=== PATIENT | male | born 1935 | race Caucasian/White ===

== ENCOUNTER 2016-08-20 07:42 | Inpatient (IN) | payer MEDICARE, OTHER ==
[~2016-08-20] VITALS: Ht 175.3 cm; Wt 66.1 kg
[~2016-08-20 07:42] MED LIST: BUDE6HFA IH; CARV25TA79 PO; CELE200C PO; CHOLESTEROL PO; DIABETES PO; ESCI20TA PO; ESOM20CA PO; HEART PO; HTN PO; LOVAZA PO; MECL-90 PO; METF1000 PO; METO-429 PO; PLAVIX PO; RAMI10CA48 PO; SITA100T8 PO; SMV40T PO; ZOLP5TAB6 PO
[2016-08-20 07:48] VITALS: Ht 175.3 cm; Wt 66.1 kg
[2016-08-20] MEDS ORDERED: SOD CHLORIDE 0.9% 1,000 ML IV STA (08:13)
[2016-08-20 08:46] LABS: ALBUMIN 3.7 g/dl (3.3-4.9)
[2016-08-20 08:47] LABS: INR 1.12; POTASSIUM 4.4 mmol/L (3.5-5.1); PROTIME 14.4 Sec (12.2-14.2); PT RATIO 1.1
[2016-08-20 08:48] LABS: PARTIAL THROMBOPLASTIN TIME 31.3 Sec (25.0-35.0)
[2016-08-20 08:49] LABS: ALBUMIN/GLOBULIN RATIO 1.12; BILIRUBIN,INDIRECT 0.2 mg/dl (0-1.1); BILIRUBIN,TOTAL 0.2 mg/dl (0.2-1.3); CREATININE 1.68 mg/dl (0.61-1.24)
[2016-08-20 08:50] LABS: CALCIUM 9.2 mg/dl (8.4-10.2)
[2016-08-20 08:57] LABS: BASOPHILS % 0.4 % (0.0-2.0); EOSINOPHILS # 0.1 10^3/ul (0.0-0.5); EOSINOPHILS % 0.5 % (0.0-7.0); HEMATOCRIT 31.7 % (42.0-52.0); HEMOGLOBIN 10.8 g/dl (14.0-18.0); LYMPHOCYTES # 1.3 10^3/ul (0.8-2.9); LYMPHOCYTES % 13.2 % (15.0-51.0); MEAN CORPUSCULAR HEMOGLOBIN 30.4 pg (29.0-33.0); MEAN CORPUSCULAR HGB CONC 34.2 g/dl (32.0-37.0); MEAN CORPUSCULAR VOLUME 88.8 fl (82.0-101.0); MONOCYTE # 1.3 10^3/ul (0.3-0.9); NEUTROPHIL # 7.3 10^3/ul (1.6-7.5); NEUTROPHILS % 72.9 % (39.0-77.0); PLATELET COUNT 198 10^3/UL (140-440); RED BLOOD COUNT 3.57 10^6/ul (4.70-6.10)
[2016-08-20 09:02] LABS: TROPONIN-I 0.017 ng/ml (0.00-0.12)
[2016-08-20 09:06] LABS: CONDITION 1
[2016-08-20] MEDS ORDERED: MECL-77 PO (09:13)
[2016-08-20] MEDS ORDERED: MEGE20TA6 PO (09:14)
[2016-08-20] MEDS ORDERED: IBUP800T25 PO (09:14)
[2016-08-20] MEDS ORDERED: MEMA10TA16 PO (09:15)
[2016-08-20] MEDS ORDERED: GABA300C16 PO (09:15)
[2016-08-20] MEDS ORDERED: ADV25050 INHALATION (09:16)
[2016-08-20] MEDS ORDERED: DUTA0.5C PO (09:16)
[2016-08-20] MEDS ORDERED: EZET10TA3 PO (09:16)
[2016-08-20] MEDS ORDERED: CYCL1DRO BOTH EYES (09:17)
[2016-08-20] MEDS ORDERED: SOLI5TAB5 PO (09:18)
[2016-08-20] MEDS ORDERED: ARIP2TAB8 PO (09:18)
--- NOTE | 2016-08-20 09:18 | ERA ---
ER Documentation Chief Complaint Date/Time DATE: 08/20/16 TIME: 09:16 Chief Complaint left sided abdominal pain, cough, fever x 1 month, vomiting x 1 week HPI 80-year-old male who presents with family. His grandson appears to be interpreting. The patient has myriad complaints that include left-sided abdominal pain for approximately 1 month with intermittent cough and intermittent fevers and chills. Approximately 1 week the patient has had several episodes of nonbloody nonbilious emesis. The patient does report prior abdominal surgical history but is unsure what this was. He is a smoker. He denies any significant shortness of breath but has describes shortness of breath in the past with pleuritic pain over this timeframe. No lower extremity swelling. ROS All systems reviewed and are negative except as per history of present illness. Medications Home Meds Reported Medications Salmeterol Xinaf/Fluticasone* (Advair*) 250-50 Diskus Inhaler, 1 INH INHALATION BID, #1 INHALER 08/20/16 Memantine* (Namenda*) 10 Mg Tablet, 10 MG PO BID, #60 TAB 08/20/16 Gabapentin* (Gabapentin*) 300 Mg Capsule, 300 MG PO BID, #60 CAP 08/20/16 Megestrol Acetate* (Megestrol Acetate*) 20 Mg Tablet, 20 MG PO DAILY, TAB 08/20/16 Ibuprofen* (Motrin*) 800 Mg Tab, 800 MG PO DAILY Y for PAIN, TAB 08/20/16 Meclizine Hcl* (Meclizine Hcl*) 25 Mg Tablet, 25 MG PO BID Y for DIZZINESS, TAB 08/20/16 Zolpidem Tartrate* (Zolpidem Tartrate*) 5 Mg Tablet, 5 MG PO HS 04/12/13 Metformin Hcl* (Metformin Hcl*) 1,000 Mg Tablet, 1000 MG PO BID 04/12/13 Carvedilol* (Carvedilol*) 25 Mg Tablet, 25 MG PO BID 04/12/13 Sitagliptin* (Januvia*) 100 Mg Tablet, 100 MG PO DAILY 04/12/13 Simvastatin (Simvastatin) 40 Mg Tablet, 40 MG PO DAILY 04/12/13 Ramipril (Ramipril) 10 Mg Capsule, 10 MG PO DAILY 04/12/13 Discontinued Reported Medications Budesonide-Formoterol Fumarate* (Symbicort*) 6 Gm Hfa.aer.ad, 6 GM IH BID 04/12/13 Metoprolol Tartrate (LOPRESSOR) 50 Mg Tab, 50 MG PO DAILY 04/12/13 Meclizine Hcl* (Bonine*) 25 Mg Tab.chew, 25 MG PO BID 04/12/13 [Lovaza] No Conflict Check, 1 GM PO BID 04/12/13 Escitalopram Oxalate* (Lexapro*) 20 Mg Tablet, 20 MG PO DAILY 04/12/13 Celecoxib* (Celebrex*) 200 Mg Capsule, 200 MG PO DAILY 04/12/13 Esomeprazole Mag Trihydrate (Nexium) 20 Mg Capsule.dr, 40 MG PO DAILY 04/12/13 [Cholesterol] No Conflict Check, PO DAILY 04/17/12 [Plavix] No Conflict Check, PO DAILY 04/17/12 [Heart] No Conflict Check, PO DAILY 04/17/12 [Diabetes] No Conflict Check, PO BID 04/17/12 [Htn ] No Conflict Check, PO DAILY 04/17/12 Allergies Allergies: Coded Allergies: No Known Allergy (Unverified , 04/12/13) PMhx/Soc History of Surgery: Yes (APPENDECTOMY) Anesthesia Reaction: No Hx Neurological Disorder: No Hx Respiratory Disorders: No Hx Cardiac Disorders: Yes (HTN 6 YRS ) Hx Psychiatric Problems: No Hx Miscellaneous Medical Probl: Yes (DM,COPD,OSTEOARTHERITIS,DEPRESSION) Hx Alcohol Use: No Hx Substance Use: No Hx Tobacco Use: Yes Smoking Status: Current every day smoker FmHx Family History: No diabetes Physical Exam Vitals Vital Signs Date Time Temp Pulse Resp B/P Pulse Ox O2 Delivery O2 Flow Rate FiO2 08/20/16 07:48 97.9 82 18 130/66 95 Physical Exam General: Well developed, well nourished, no acute distress Head: Normocephalic, atraumatic. Eyes: Pupils equally reactive, EOM intact ENT: Moist mucous membranes Neck: Supple, no lymphadenopathy Respiratory: Scant rales at the bases bilaterally, no distress Cardiovascular: RRR, no murmurs, rubs, or gallops Abdominal: Soft, mild diffuse tenderness without rebound or guarding, no pulsatile mass : Deferred MSK: No edema, no unilateral swelling, 5/5 strength Neurologic: Alert and oriented, moving all extremities, normal speech, no focal weakness, no cerebellar signs Skin: No rash Psych: Normal mood Result Diagram: 08/20/16 0815 Results 24 hrs Laboratory Tests Test 08/20/16 08:12 08/20/16 08:15 Bedside Glucose 157mg/dL Activated Partial Thromboplast Time 31.3Sec Basophils # 0.010^3/ul Basophils % 0.4% Eosinophils # 0.110^3/ul Eosinophils % 0.5% Hematocrit 31.7% Hemoglobin 10.8g/dl INR International Normalized Ratio 1.12 Lymphocytes # 1.310^3/ul Lymphocytes % 13.2% Mean Corpuscular Hemoglobin 30.4pg Mean Corpuscular Hemoglobin Concent 34.2g/dl Mean Corpuscular Volume 88.8fl Mean Platelet Volume 9.0fl Monocytes # 1.310^3/ul Monocytes % 13.0% Neutrophils # 7.310^3/ul Neutrophils % 72.9% Nucleated Red Blood Cells # 0.010^3/ul Nucleated Red Blood Cells % 0.0/100WBC Platelet Count 88832^3/UL Prothrombin Time 14.4Sec Prothrombin Time Ratio 1.1 Red Blood Count 3.5710^6/ul Red Cell Distribution Width 13.0% White Blood Count 10.010^3/ul Current Medications Medications (Trade) Dose Ordered Sig/Sury Route PRN Reason Start Time Stop Time Status Last Admin Dose Admin Sodium Chloride (NS) 1,000 ml @ 1,000 mls/hr Q1H STAT IV 08/20/16 08:13 08/20/16 09:12 DC 08/20/16 08:29 Procedures/MDM EKG, MONITORS, & DIAGNOSTIC IMAGING: EKG: I reviewed and interpreted a 12-lead EKG. Rhythm: Normal sinus rhythm Ectopy: None Intervals: No abnormalities ST segments: No elevations or depressions T waves: No contiguous inversions Chest x-ray: I reviewed and interpreted a 1 view of the chest Mediastinum: No enlargement Cardiac silhouette: No cardiomegaly Airspace: Clear lung pena bilaterally without evidence of pneumothorax Bones: No evidence of fracture CT PE: [] CT abdomen and pelvis: [] PROCEDURES: [] LAB INTERPRETATION: [] MEDICAL DECISION MAKING: The patient has multiple complaints over approximately 1 month timeframe. This includes abdominal pain with intermittent chills, fevers as well as left-sided shortness of breath and pleuritic pain. I doubt ACS or dissection given duration of timeframe. However given the patient's age and smoking history malignancy pops to the top of my differential. I would consider pulmonary embolism in the setting as well. For these reasons the patient will benefit from advanced imaging including CT of the chest and abdomen and pelvis, laboratory testing and rule out of ACS. It appears the patient had polyps removed during colonoscopy approximately 5 years ago. ER COURSE: [] I kept the patient and/or family informed of laboratory and diagnostic imaging results throughout the emergency room course. DISPOSITION PLAN: [] CONSULTATION: [] CINDY DEL TORO MD Aug 20, 2016 09:18
[2016-08-20] MEDS ORDERED: OLOP2.5D BOTH EYES (09:19)
[2016-08-20] MEDS ORDERED: DEXL60CA2 PO (09:19)
[2016-08-20] MEDS ORDERED: RANO500T2 PO (09:19)
[2016-08-20] MEDS ORDERED: LIPA1CAP6 PO (09:20)
[2016-08-20] MEDS ORDERED: ICOS1CAP PO (09:21)
--- NOTE | 2016-08-20 09:35 | RADRPT ---
PROCEDURE: XR Chest. CLINICAL INDICATION: Cough TECHNIQUE: Chest AP portable COMPARISON: 04/12/2013 FINDINGS: The mediastinal structures are unremarkable. There is calcification of the thoracic aorta (consiste nt with atherosclerosis). The heart is normal in size and configuration. The pulmonary vascularity is normal. The lung pena are unremarkable. No consolidation is identified. There is no change in the tiny LLL calcified granuloma. The pleural spaces are unremarkable. There are senescent malloy ges of the axial skeleton. IMPRESSION: Calcification of the thoracic aorta (consistent with atherosclerosis). No evidence for active cardiopulmonary disease. RPTAT: HGDB .Jayson Cole MD, MD Date Time Electronically viewed and signed by .Jayson Cole MD, on 08/20/2016 09:34 .B/
[2016-08-20 10:47] LABS: D-DIMER 765.9 ng/ml (<460)
[2016-08-20 14:34] LABS: ADD UMIC YES; URINE BILIRUBIN (Dip) NEGATIVE (NEGATIVE); URINE BLOOD (Dip) 3+ (NEGATIVE); URINE COLOR LT. YELLOW (YELLOW); URINE GLUCOSE (Dip) NEGATIVE (NEGATIVE); URINE KETONES (Dip) NEGATIVE (NEGATIVE); URINE LEUKOCYTE ESTERASE (Dip) NEGATIVE (NEGATIVE); URINE NITRITE (Dip) NEGATIVE (NEGATIVE); URINE TOTAL PROTEIN (Dip) TRACE (NEGATIVE); URINE UROBILINOGEN (Dip) 0.2 E.U./dL (0.1-1.0)
[2016-08-20 14:45] LABS: SQUAMOUS EPITHELIAL CELL,UR FEW
--- NOTE | 2016-08-20 16:31 | RADRPT ---
PROCEDURE: Nuclear medicine ventilation perfusion lung scan. CLINICAL INDICATION: Chest pain and shortness of breath. TECHNIQUE: 46 mCi technetium 99m DTPA was used for the ventilation study. 4.7 millicurie technetium 99m MAA was injected intravenously for the perfusion study. The images were obtained in the LPO, RPO, anterior, posterior, right lateral, left lateral, MICHAELLE, and MCMAHAN projections. COMPARISON: No prior studies available for comparison. FINDINGS: The ventilation study demonstrates moderate central deposition of radiotracer. The perfusion study demonstrates patchy bilateral regions of impaction decreased uptake in the left upper lung zone, left lower lung zone, right middle lung zone, and right lower lung zone laterally. IMPRESSION: 1. Multiple matched defects bilaterally. Indeterminate probability for pulmonary embolism. Correl ation with CT pulmonary angiogram is advised. RPTAT: QQ .Javed Cortes MD, Date Time Electronically viewed and signed by .Javed Cortes MD, on 08/20/2016 16:31 .R/
[2016-08-21] VITALS (15 sets, daily range): BP systolic 107–143; BP diastolic 56–103; PULSE 62–86; RESP 16–30; TEMP 98.4
[2016-08-21] MEDS ORDERED: DOCUSATE SODIUM 100 MG CAP PO PRN
[2016-08-21] MEDS ORDERED: NITROGLYCERIN (SL) 0.4 MG TAB SL PRN
[2016-08-21] MEDS ORDERED: ACETAMINOPHEN 650MG/20.3ML CUP PO PRN
[2016-08-21] MEDS ORDERED: LORAZEPAM 2 MG INJ IV PRN
[2016-08-21] MEDS ORDERED: MECLIZINE 25 MG TAB PO PRN
[2016-08-21] MEDS ORDERED: morphine 2 MG INJ IV PRN
[2016-08-21] MEDS ORDERED: ONDANSETRON 4 MG INJ IV PRN
--- NOTE | 2016-08-21 00:52 | HP ---
Date/Time of Note Date/Time of Note DATE: 08/21/16 TIME: 00:41 Assessment/Plan VTE Prophylaxis VTE Prophylaxis Intervention: heparin Assessment/Plan Assessment/Plan 80 yo male with past medical history of type II DM, essential hypertension, BPH , Hyperlipidemia, Smoking abuse, GERD, CAD, Depression, Vertigo, who presents with chest pain 4 days duration. 1. Chest pain - PE vs dissection vs ACS - will admit the patient to the icu, consult cardiology, pulmonology, monitor O2 saturations, Morphine/Oxygen/NTG SL/ Aspirin, CTA chest once creatinine improves with possible CT surgery consult, cycle cardiac markers, check TSH/Mag levels 2. Acute renal insufficiency - ATN vs dehydration - c/w IVF, renally adjust medications, avoid nephrotoxins 3. Anemia - chronic - will check iron panel, occult blood stool 4. Type II DM - controlled check Hgba1c, ISS 5. Essential hypertension - c/w coreg, maintain sbp < 140 for concern of dissection 6. Hyperlipidemia - c/w zetia/statin - check lipid panel 7. CAD - continue with aspirin 8. Depression - continue with abilify 9. Dementia - c/w namenda 10. Vertigo - c/w antivert 11. GERD - c/w dexilant 12. Smoking abuse - patient counseled on cessation 13. GI ppx - dexilant 14. DVT ppx - heparin answered all of his questions. as per clinical course. this critical care note took greater than 1 hour to complete HPI/ROS Admit Date/Time Admit Date/Time 08/21/2016, 12:42 am Hx of Present Illness 80 yo male with past medical history of type II DM, essential hypertension, BPH , Hyperlipidemia, Smoking abuse, GERD, CAD, Depression, Vertigo, who presents with chest pain 4 days duration. The patient had recently gone gambling and had noted that the air conditioning was blasting on top of his head. Subsequently he developed a cough, with chills. He also has been having decreased appetite, nausea with 4 episodes of NBNB vomitus. He also states that he has chest pain, 10/10 -->6/10 in intensity, substernal, radiating to the back, with diaphoresis , pressure like sensation, constant, with mild shortness of breath. He denies any loss of consciousness, sick contacts, headaches, or urinary/bowel irregularities. He does have a non-productive cough. Otherwise no other constitutional symptoms. ED course: V/Q scan - indeterminate, IVF ROS 14 point review of systems completed, please refer to HPI for any positive findings PMH/Family/Social Past Medical History depression, BPH, vertigo Medical History: coronary artery disease, diabetes, GERD, high cholesterol, hypertension Past Surgical History Past Surgical Hx: angioplasty, appendectomy Family History Significant Family History: no pertinent family hx Social History Alcohol Use: occasionally Smoking Status: Current every day smoker (1 ppd x 70 years) Drug Use: none Exam/Review of Systems Vital Signs Vitals Vital Signs Date Time Temp Pulse Resp B/P Pulse Ox O2 Delivery O2 Flow Rate FiO2 08/21/16 00:22 73 20 117/73 96 Room Air 08/20/16 19:02 98.0 2.0 Exam Exam Gen Chaya: mild distress / to chest pain, AAOx4 HEENT: NC/AT, PERRLA, EOMI, no pharyngeal erythema, no tonsillar exudates, no lymphadenopathy, no JVD, no carotid bruits NECK: supple, no thyromegaly THORAX: symmetrical, no obvious deformities CV: S1S2, RRR, no M/G/R Lungs: diminished breath sounds to the bases bilaterally, no overt wheezing or crackles appreciated Abd: soft, NT/ND, +BS, no rebound, no guarding, neg HSM EXT: trace lower extremity edema, no ecchymosis, bilateral clubbing, FROM Neuro: CN II-XII grossly intact, no focal deficits Psych: good mentation, alert and oriented, good mood and affect Skin: C/D/I Labs Result Diagram: 08/20/1681408/20/1615 Medications Medications Current Medications Sodium Chloride (NS) 1,000 ml @ 75 mls/hr [id number] IV ; Start 08/20/16 at 23:34 ; Status UNV Ondansetron HCl (Zofran Inj) 4 mg Q6H PRN IV NAUSEA AND/OR VOMITING; Start at 00:00; Status UNV Nitroglycerin (Nitroglycerin (Sl Tab) 0.4 Mg) 1 tab Q5M PRN SL CHEST PAIN; Start 08/21/16 at 00:00; Status UNV Acetaminophen (Tylenol Liquid) 650 mg Q6H PRN PO PAIN LEVEL 1-3 OR FEVER; Start 08/21/16 at 00:00; Status UNV Morphine Sulfate (morphine) 2 mg Q4H PRN IV PAIN LEVEL 7-10; Start 08/21/16 at 00:00; Status UNV Lorazepam (Ativan) 1 mg Q2H PRN IV ANXIETY; Start 08/21/16 at 00:00; Status UNV Docusate Sodium (Colace) 100 mg Q12H PRN PO CONSTIPATION; Start 08/21/16 at 00: 00; Status UNV Famotidine (Pepcid Iv) 20 mg Q12 IV ; Start 08/21/16 at 09:00; Status UNV Heparin Sodium (Porcine) (Heparin (5000 Units/0.5 ml)) 5,000 unit Q8 SC ; Start 08/21/16 at 06:00; Status UNV Miscellaneous Information (* Miscellaneous Pharmacy Order) HYPOGLYCEMIA PROTOCOL w... ONCE ONCE XX ; Start 08/21/16 at 00:00; Stop 08/21/16 at 00:01; Status UNV Miscellaneous Information (* Miscellaneous Pharmacy Order) Discontinue Glyburide , Glipizide,... ONCE ONCE XX ; Start 08/21/16 at 00:00; Stop 08/21/16 at 00:01 ; Status UNV Miscellaneous Information (* Miscellaneous Pharmacy Order) Discontinue all previ... ONCE ONCE XX ; Start 08/21/16 at 00:00; Stop 08/21/16 at 00:01; Status UNV Procedures Procedures V/Q scan IMPRESSION: 1. Multiple matched defects bilaterally. Indeterminate probability for pulmonary embolism. Correlation with CT pulmonary angiogram is advised. CXR IMPRESSION: Calcification of the thoracic aorta (consistent with atherosclerosis). No evidence for active cardiopulmonary disease. KALAYN HUITRON MD Aug 21, 2016 00:52
[2016-08-21] MEDS ORDERED: GLUCOSE GEL 15 GRAM TUBE BUCCAL PRN (01:00)
[2016-08-21] MEDS ORDERED: GLUCAGON 1 MG INJ IM PRN (01:00)
[2016-08-21] MEDS ORDERED: GLUCOSE GEL 15 GRAM TUBE PO PRN ×2 (01:00)
[2016-08-21] MEDS ORDERED: DEXTROSE 50% 50 ML SYRINGE IV PRN ×2 (01:00)
[2016-08-21 02:16] LABS: BASOPHILS % 0.2 % (0.0-2.0); EOSINOPHILS # 0.1 10^3/ul (0.0-0.5); EOSINOPHILS % 0.7 % (0.0-7.0); HEMATOCRIT 34.3 % (42.0-52.0); HEMOGLOBIN 11.7 g/dl (14.0-18.0); LYMPHOCYTES # 1.5 10^3/ul (0.8-2.9); LYMPHOCYTES % 14.5 % (15.0-51.0); MEAN CORPUSCULAR HEMOGLOBIN 30.3 pg (29.0-33.0); MEAN CORPUSCULAR VOLUME 89.1 fl (82.0-101.0); MONOCYTE # 1.3 10^3/ul (0.3-0.9); MONOCYTES % 12.5 % (0.0-11.0); NEUTROPHIL # 7.4 10^3/ul (1.6-7.5); NEUTROPHILS % 72.1 % (39.0-77.0); PLATELET COUNT 241 10^3/UL (140-440); RED BLOOD COUNT 3.85 10^6/ul (4.70-6.10); RED CELL DISTRIBUTION WIDTH 12.8 % (11.5-14.5); UNCORRECTED WBC 10.3 10^3/ul (4.8-10.8); WHITE BLOOD COUNT 10.3 10^3/ul (4.8-10.8)
[2016-08-21 02:17] LABS: CHOL/HDL RATIO 5.7 RATIO; MAGNESIUM 1.6 mg/dl (1.7-2.5)
[2016-08-21 02:18] LABS: CONDITION 1
[2016-08-21 03:54] LABS: THYROID STIMULATING HORMONE 1.48 MIU/L (0.465-4.680)
[2016-08-21] MEDS: SOD CHLORIDE 0.9% 1,000 ML IV SCH ×2 (03:58→16:46)
[2016-08-21 05:59] LABS: ALBUMIN 3.8 g/dl (3.3-4.9); POTASSIUM 4.2 mmol/L (3.5-5.1)
[2016-08-21 06:01] LABS: CREATININE 1.4 mg/dl (0.61-1.24)
[2016-08-21 06:02] LABS: ALBUMIN/GLOBULIN RATIO 1.18; BILIRUBIN,INDIRECT 0.2 mg/dl (0-1.1); BILIRUBIN,TOTAL 0.2 mg/dl (0.2-1.3)
[2016-08-21 06:03] LABS: CALCIUM 9.1 mg/dl (8.4-10.2)
[2016-08-21] MEDS: PANTOPRAZOLE (EC) 40 MG TAB PO SCH ×2 (06:33→16:58)
[2016-08-21] MEDS: HEPARIN 5,000 UNIT/0.5 ML SYG SC SCH ×3 (06:35→21:17)
[2016-08-21] MEDS: INSULIN ASPART [NOVOLOG] 3 ML PEN SC SCH ×4 (07:35→21:00)
[2016-08-21] MEDS ORDERED: MAGNESIUM SULFATE 3 GM in SOD CHLORIDE 0.9% 100 ML IVPB ONE (08:30)
[2016-08-21] MEDS: CREON (24K-76K-120K) 1 CAP PO SCH ×3 (08:44→16:47)
[2016-08-21] MEDS: CYCLOSPORINE 0.05% OPH DROPERETTE BOTH EYES SCH ×2 (08:44→21:00)
[2016-08-21] MEDS: RANOLAZINE (SR) 500 MG TAB PO SCH ×2 (08:44→23:09)
[2016-08-21] MEDS: SALMETEROL/FLUTICASONE 250/50 INHA INH SCH ×2 (08:45→21:00)
[2016-08-21] MEDS: MEMANTINE 10 MG TAB PO SCH ×2 (08:59→23:09)
[2016-08-21] MEDS: MEGESTROL 40 MG TAB PO SCH (09:00)
[2016-08-21] MEDS: SOLIFENACIN 5 MG TAB PO SCH (09:00)
[2016-08-21] MEDS ORDERED: NON-FORMULARY/PATIENT OWN MED (Icosapent Ethyl (Vascepa) 1 GM) PO SCH (09:00)
[2016-08-21] MEDS: ARIPIPRAZOLE 2 MG TAB PO SCH (09:01)
--- NOTE | 2016-08-21 09:13 | CONS ---
Date/Time of Note Date/Time of Note DATE: 08/21/16 TIME: 09:04 Assessment/Plan Assessment/Plan Additional Assessment/Plan VQ scan was reviewed from yesterday which is showing multiple matched defects likely on account of underlying emphysema. Chest x-ray was reviewed also which is unremarkable. EKG also was reviewed showing sinus rhythm without any ischemic findings. Next Assessment recommendations; 1. Patient admitted with bouts of coughing likely from acute bronchitis. 2. No history of chest pain. 3. Remote history of coronary artery disease status post PTCA, with normal EKG. 4. Currently no clinical suspicion of pulmonary embolism. Continue current treatment. Patient can be transferred to the medical floor. At this time I would not recommend obtaining CT of the chest with contrast on account of renal insufficiency and especially in view of no clinical suspicion of pulmonary embolism. Consultation Date/Type/Reason Admit Date/Time 08/21/2016, 12:42 am Date of Consultation: Aug 21, 2016 Type of Consultation: Pulmonary/critical care Reason for Consultation Patient admitted with nonspecific abdominal pain, as well as episodes of coughing. Pulmonary consultation obtained for evaluation of possible pulmonary embolism. History of present illness; patient is an 80-year-old male who was admitted to the hospital where he presented yesterday to the ER with 2 or 3 day history of severe coughing with complaints of mucus congestion in the chest. According to the patient's daughter, patient was in a casino a few days ago, it was raining pretty hard, after that the patient got wet and after that started developing cough with chest congestion. No wheezing. No history of any chest pain. This was clarified in detail with the family. Patient has a long-standing history of nonspecific left lower quadrant abdominal pain which he has also been complaining lately again. No history of any nausea, vomiting any fever chills. Past medical history 1. COPD 2. Anemia n 3. Hypertension 4. Depression 5. Reflux 6. Coronary artery disease status post angioplasty 7. Renal insufficiency 8. Hyperlipidemia 9. Benign prostatic hypertrophy 8. History of appendectomy Medications; were reviewed. Allergies; are none. Social history; patient is a 64-tuck-djvd smoking history. Still smokes a pack a day. No alcohol or drug abuse. Family history; patient is , has 2 children. Occupational history; patient has had miscellaneous occupations. Review of systems; denies any headache, any visual changes. Any seizures. Any sinus symptoms. Denies any sore throat, dysphagia. Any chest pain. Shortness of breath coughing and chest congestion have almost completely dissipated. c/o chronic left lower abdominal pain. Denies any nausea, vomiting. Denies any melena, hematochezia. Any urinary symptoms, any skin changes, any weight change. General exam; elderly male, currently in no distress awake and alert. Past Medical History Medical History: coronary artery disease, diabetes, GERD, high cholesterol, hypertension Past Surgical History Past Surgical Hx: angioplasty, appendectomy Social History Alcohol Use: occasionally Smoking Status: Current every day smoker (1 ppd x 70 years) Drug Use: none Exam/Review of Systems Vital Signs Vitals Vital Signs Date Time Temp Pulse Resp B/P Pulse Ox O2 Delivery O2 Flow Rate FiO2 08/21/16 07:00 73 16 122/103 97 Nasal Cannula 2.0 08/21/16 06:19 98.4 Intake and Output 08/20/16 08/20/16 08/21/16 15:00 23:00 07:00 Intake Total 1000 ml Balance 1000 ml Exam H EENT examination; supple neck, no JVD. No lymphadenopathy. Midline trachea. Pharynx is clear. Patient is edentulous and wears dentures. Pupils are midsize and reactive to light bilaterally. Extraocular movements are intact. Chest examination; clear to auscultation bilaterally. Nontender chest wall. S1 -S2 audible, no murmurs. Regular rhythm. Abdomen examination; soft, no organomegaly, minimal left lower quadrant tenderness is present. No rebound tenderness. Bowel sounds audible. Extremity examination; no peripheral edema. No calf swelling. Pulses 1+ bilaterally. No clubbing. V[employer]UNTEER RECRU[employer] examination; cranial nerves are intact, no focal deficit. Results Result Diagram: 08/21/16 0124 08/21/16 0532 Results 24 hrs Laboratory Tests Test 08/20/16 14:15 08/20/16 20:16 08/21/16 01:24 08/21/16 05:32 Urine Bilirubin NEGATIVE Urine Clarity CLEAR Urine Color LT. YELLOW Urine Glucose NEGATIVE Urine Hemoglobin 3+ H Urine Ketones NEGATIVE Urine Leukocyte Esterase NEGATIVE Urine Microscopic RBC 10-25 Urine Microscopic WBC NONE SEEN Urine Nitrite NEGATIVE Urine Specific [place] 1.015 Urine Squamous Epithelial Cells FEW Urine Total Protein TRACE Urine Triple Phosphate Crystals MODERATE Urine Urobilinogen 0.2 E.U./dL Urine pH 5.0 Bedside Glucose 123 Basophils # 0.0 Basophils % 0.2 Cholesterol Level 172 Cholesterol/HDL Ratio 5.7 Eosinophils # 0.1 Eosinophils % 0.7 HDL Cholesterol 30 L Hematocrit 34.3 L Hemoglobin 11.7 L Hemoglobin A1c 6.2 H LDL Cholesterol, Calculated 111 Lymphocytes # 1.5 Lymphocytes % 14.5 L Magnesium Level 1.6 L Mean Corpuscular Hemoglobin 30.3 Mean Corpuscular Hemoglobin Concent 34.0 Mean Corpuscular Volume 89.1 Mean Platelet Volume 9.0 Monocytes # 1.3 H Monocytes % 12.5 H Neutrophils # 7.4 Neutrophils % 72.1 Nucleated Red Blood Cells # 0.0 Nucleated Red Blood Cells % 0.0 Platelet Count 241 # Red Blood Count 3.85 L Red Cell Distribution Width 12.8 Thyroid Stimulating Hormone (TSH) 1.480 Triglycerides Level 157 H Troponin I 0.015 0.019 White Blood Count 10.3 Alanine Aminotransferase (ALT/SGPT) 18 Albumin 3.8 Albumin/Globulin Ratio 1.18 Alkaline Phosphatase 66 Anion Gap 22 H Aspartate Amino Transf (AST/SGOT) 17 Blood Urea Nitrogen 20 Calcium Level 9.1 Carbon Dioxide Level 21 Chloride Level 103 Creatinine 1.40 H Direct Bilirubin 0.00 Globulin 3.20 Glucose Level 130 Indirect Bilirubin 0.2 Potassium Level 4.2 Sodium Level 142 Total Bilirubin 0.2 Total Protein 7.0 Test 08/21/16 08:33 Bedside Glucose 138 Medications Medications Current Medications Sodium Chloride (NS) 1,000 ml @ 75 mls/hr [id number] IV Last administered on 08/21t 03:58; Admin Dose 75 MLS/HR; Start 08/21/16 at 03:45 Ondansetron HCl (Zofran Inj) 4 mg Q6H PRN IV NAUSEA AND/OR VOMITING; Start at 00:00 Nitroglycerin (Nitroglycerin (Sl Tab) 0.4 Mg) 1 tab Q5M PRN SL CHEST PAIN; Start 08/21/16 at 00:00 Acetaminophen (Tylenol Liquid) 650 mg Q6H PRN PO PAIN LEVEL 1-3 OR FEVER; Start 08/21/16 at 00:00 Morphine Sulfate (morphine) 2 mg Q4H PRN IV PAIN LEVEL 7-10; Start 08/21/16 at 00:00 Lorazepam (Ativan) 1 mg Q2H PRN IV ANXIETY; Start 08/21/16 at 00:00 Docusate Sodium (Colace) 100 mg Q12H PRN PO CONSTIPATION; Start 08/21/16 at 00: 00 Famotidine (Pepcid Iv) 20 mg DAILY IV ; Start 08/21/16 at 09:00 Heparin Sodium (Porcine) (Heparin (5000 Units/0.5 ml)) 5,000 unit Q8 SC Last administered on 08/21/16 06:35; Admin Dose 5,000 UNIT; Start 08/21/16 at 06:00 Aripiprazole (Abilify) 2 mg DAILY PO ; Start 08/21/16 at 09:00 Carvedilol (Coreg) 25 mg BID PO ; Start 08/21/16 at 09:00 Cyclosporine (Restasis) 1 drop Q12 BOTH EYES ; Start 08/21/16 at 09:00 Dutasteride (Avodart) 0.5 mg DAILY PO ; Start 08/21/16 at 09:00 EZETIMIBE (Zetia) 10 mg HS PO ; Start 08/21/16 at 21:00 Gabapentin (Neurontin) 300 mg BID PO ; Start 08/21/16 at 09:00 Meclizine HCl (Antivert) 25 mg BID PRN PO DIZZINESS; Start 08/21/16 at 00:00 Memantine (Namenda) 10 mg BID PO ; Start 08/21/16 at 09:00 Ranolazine (Ranexa) 500 mg Q12 PO ; Start 08/21/16 at 09:00 Salmeterol Xinafoate/ Fluticasone (Advair 250/50 Diskus) 1 inh BID INH ; Start 08/21/16 at 09:00 Solifenacin (Vesicare) 5 mg DAILY PO ; Start 08/21/16 at 09:00 Zolpidem Tartrate (Ambien) 5 mg HS PO ; Start 08/21/16 at 21:00 Pantoprazole (Protonix Tab) 40 mg BID@06,18 PO Last administered on 08/21/16 06:33; Admin Dose 40 MG; Start 08/21/16 at 06:00 Miscellaneous Information 1 gm DAILY PO ; Start 08/21/16 at 09:00; Status UNV Megestrol Acetate (Megace) 20 mg DAILY PO ; Start 08/21/16 at 09:00 Miscellaneous Information 1 drop DAILY BOTH EYES ; Start 08/21/16 at 09:00; Status UNV Atorvastatin Calcium (Lipitor) 20 mg DAILY@21 PO ; Start 08/21/16 at 21:00 Miscellaneous Information 1 ea NOTE XX ; Start 08/21/16 at 01:00 Glucose (Glutose) 15 gm Q15M PRN PO DECREASED GLUCOSE; Start 08/21/16 at 01:00 Glucose (Glutose) 22.5 gm Q15M PRN PO DECREASED GLUCOSE; Start 08/21/16 at 01: 00 Dextrose (D50w Syringe) 25 ml Q15M PRN IV DECREASED GLUCOSE; Start 08/21/16 at 01:00 Dextrose (D50w Syringe) 50 ml Q15M PRN IV DECREASED GLUCOSE; Start 08/21/16 at 01:00 Glucagon (Glucagen) 1 mg Q15M PRN IM DECREASED GLUCOSE; Start 08/21/16 at 01:00 Glucose 15 gm 15 gm Q15M PRN BUCCAL DECREASED GLUCOSE; Start 08/21/16 at 01:00 Magnesium Sulfate/ Sodium Chloride (Magnesium Sulfate/NS) 106 ml @ 35.333 mls/ hr ONCE ONCE IVPB Last administered on 08/21/16t 07:45; Admin Dose 35.333 MLS/ HR; Start 08/21/16 at 08:30; Stop 08/21/16 at 11:29 DORIE MILLER Aug 21, 2016 09:13
--- NOTE | 2016-08-21 09:44 | QN ---
Documentation Comment The patient was seen and examined. The plan of care was explained to the patient's family. Discussed the case with the sr. manager. As per pulmonology, there is less suspicion for any pulmonary embolism. Hence the CT angiogram will be discontinued. Case discussed with Dr. Lakahni. HELEN CHAVEZ NP Aug 21, 2016 09:44
[2016-08-21] MEDS: GABAPENTIN 300 MG CAP PO SCH ×2 (10:07→21:11)
[2016-08-21] MEDS: FAMOTIDINE 20 MG INJ IV SCH (10:07)
[2016-08-21] MEDS: DUTASTERIDE 0.5 MG CAP PO SCH (10:08)
[2016-08-21] MEDS ORDERED: [UNRECOGNIZED DRUG - REMARK] XX SCH (13:00)
[2016-08-21] MEDS: OLOPATADINE 0.1% 5 ML OPH BOTH EYES SCH ×2 (13:31→23:10)
[2016-08-21] MEDS: NICOTINE (14 MG/24 HR) PATCH TRANSDERM SCH (13:31)
--- NOTE | 2016-08-21 15:16 | CONS ---
DATE OF ADMISSION: 08/21/2016 DATE OF CONSULTATION: 08/21/2016 TYPE OF CONSULTATION: Cardiology. REASON FOR CONSULTATION: Chest pain, assess for acute coronary syndrome. REQUESTING PHYSICIAN: Dr. Huitron from the hospitalist service. HISTORY OF PRESENT ILLNESS: Mr. Minor is an 80-year-old male with a history of coronary artery d isease, nonobstructive by catheterization 7 years prior, gastroesophageal reflux disease, dementia, depression, dyslipidemia, hypertension, diabetes mellitus who initially had complaints of substernal chest pain, abdominal pain and associated diaphoresis ongoing for 1 to 2 weeks. The patient descri bes chest pain as a pressure-like sensation occurring both at rest and with exertion. Upon arrival in the emergency department, temperature 97.9, blood pressure 130/66, pulse 82, respirations 18, sat urating 95%. The patient's labs revealed a sodium 140, potassium 4.4, creatinine 1.6, BUN of 24, T 14, ALT 14. Troponin negative. LDL 111, HDL 30. TSH of 1.4. Lipase of 25. INR 1.1. UA border line positive. The patient underwent a chest x-ray which showed calcification of thoracic aorta. N o evidence of active cardiopulmonary disease and the patient underwent a VQ scan revealing multiple matched defects bilaterally, intermediate and probability for pulmonary embolus. The patient does n ot have an electrocardiogram in chart for my review at this time. Patient subsequently admitted to the ICU where he remains at this time. The patient had 2 further troponins which returned negative for 3 negative troponins, ruling out acute myocardial infarction. The patient denies ongoing chest pain at this time. PAST MEDICAL HISTORY: As above in HPI. MEDICATIONS CURRENTLY IN HOSPITAL: 1. Zetia 10 mg at bedtime. 2. Patanol eyedrops. 3. Lipitor 20 mg at bedtime. 4. Nicotine patch. 5. Pepcid 20 mg IV daily. 6. Abilify. 7. Carvedilol 25 mg p.o. b.i.d. 8. ____ 1 drop q.12h. 9. Avodart 0.5 mg daily. 10. Neurontin 300 mg b.i.d. 11. Namenda 10 mg b.i.d. 12. Ranexa 5 mg q.12h. 13. Advair Diskus b.i.d. 14. VESIcare 5 mg daily. 15. Insulin sliding scale. 16. Creon. 17. Heparin 5000 subQ q.8h. 18. Protonix 40 mg IV b.i.d. 19. IV fluid hydration at 75 mL an hour. ALLERGIES: NO KNOWN DRUG ALLERGIES. SOCIAL HISTORY: Positive tobacco, social ETOH, no illicit drug use. FAMILY HISTORY: Negative for sudden cardiac or early CAD. REVIEW OF SYSTEMS: As above in HPI. CONSTITUTIONAL: No fevers, chills. PULMONARY: Shortness of breath. CARDIOVASCULAR: Chest pain. GASTROINTESTINAL: No vomiting. GENITOURINARY: No hematuria. MUSCULOSKELETAL: Degenerative joint disease. PSYCHIATRIC: The patient denies depression. NEUROLOGIC: No documented history of CVA. PHYSICAL EXAMINATION VITAL SIGNS: Temperature 98.4, blood pressure most recently 109/67, pulse 62, respiratory rate 20, saturating 94% on 2 liters. GENERAL: The patient is alert, awake and complaining of intermittent chest pain. NECK: JVP approximately 8 cm water. CHEST: Fair movement throughout with mildly decreased breath sounds at bases bilaterally. HEART: Regular rate and rhythm. Normal S1, S2, I/ systolic murmur, nondisplaced PMI. ABDOMEN: Positive bowel sounds, soft. EXTREMITIES: No edema, 1+ pulses bilaterally posterior tibial. LABORATORY DATA: As above in HPI. Most recent from today, sodium 142, potassium 4.2, creatinine 1. 4, BUN of 20, white count 10.5 and 11.7, platelet count 241. INR of 1.1. UA positive. IMAGING STUDIES: As above in HPI. No further imaging studies for my review at this time. ECG: No electrocardiograms for my review at this time. IMPRESSION: 1. Chest pain, assess for acute coronary syndrome with negative troponins x3 at this time. 2. Hypertension, under reasonable control. 3. Dyslipidemia. 4. History of coronary artery disease and possible angina on above medications. 5. Possible pulmonary embolism by VQ scan. 6. Ongoing tobacco usage. 7. Chronic obstructive pulmonary disease with borderline urinary tract infection. 8. Renal failure, slowly improving. 9. Anemia. RECOMMENDATIONS: 1. At this time, I would maintain patient on telemetry monitoring to follow rhythm and rate control closely. 2. We will continue the patient's current carvedilol to control blood pressure and heart rate and c ontinue patient's current Ranexa as well. 3. We will follow the patient's 2D echo done for assessment of ejection fraction, wall motion and a ny major valve abnormalities. 4. We will await the patient's CT to assess for possible pulmonary embolism and if not pulmonary em bolism, then we will recommend a cardiac stress test to further evaluate possibility of significant obstructive coronary artery disease to assess the patient's symptoms of chest pain and subsequently admit to the hospital and we will additionally check serial EKGs to assess for any significant ongoi ng changes. EKG in the morning. EKG for any complaints of chest pain or change in rhythm. Thank you for allowing me to take part in the care of this patient. I will continue to follow him a long very closely with you. Further recommendations to be made as the patient progresses through hi s inpatient hospital clinical course. Dictated By: DARIEN RAMÍREZ/NTS Conf#: [id number] DID#: [id number] CC: KALYAN HUITRON MD; KEVIN CASTANON MD;*End*
--- NOTE | 2016-08-21 15:45 | RADRPT ---
Vent Rate: 64 bpm RR Interval: 0 msec SD Interval: 176 msec QRS Duration: 130 msec QT Interval: 446 msec QTC Interval: 460 msec P-R-T [place]: 75 - 68 - 70 degrees Normal sinus rhythm Right bundle branch block Abnormal ECG Electronically Signed By: Rangel Suarez [id number]
--- NOTE | 2016-08-21 16:37 | RADRPT ---
Echocardiogram Report Patient Name: BRIAN FINK Gender: Male Date: 1935 Study Date: 21-Aug-2016 Director Fixed Income: Jasmin Duncan RDCS Location: 120 Ref. Physician: KALYAN HUITRON Quality: Good Procedures: Transthoracic echocardiogram with complete 2D, M-Mode, and doppler examination. Indications: Chest Pain. 2D/M Mode Doppler Measurement Value Normal Ranges Measurement Value Normal Ranges LVIDd 2D 4.9 3.5 - 5.6 cm AV Peak Andrew 1.2 m/sec LVIDs 2D 3.3 2.1 - 4.1 cm AV Peak PG 5.5 mmHg LVPWd 2D 1.0 0.6 - 1.1 cm LVOT Peak Andrew 0.8 m/sec IVSd 2D 0.9 0.6 - 1.1 cm LVOT Peak PG 2.5 mmHg AoR Diam 2D 2.9 2.0 - 3.7 cm MV E Peak Andrew 0.8 m/sec EDV 2D 114.4 cm3 MV A Peak Andrew 0.7 m/sec ESV 2D 34.3 cm3 MV E/A 1.2 LA Dimen 2D 2.6 2.3 - 4.0 cm MV Decel Time 228 msec MV Decel [place] 4 MV E/A 1.2 Findings Left Ventricle: Normal left ventricular systolic function. Normal left ventricular cavity size. Normal left ventricular wall thickness. Ejection fraction is visually estimated at 55 %. Right Ventricle: Normal right ventricular size. Normal right ventricular systolic function. Left Atrium: The left atrium is normal in size. Right Atrium: The right atrium is normal in size. Mitral Valve: Normal appearance and function of the mitral valve with trace physiologic regurgitation. Aortic Valve: No hemodynamically significant aortic stenosis by doppler. Aortic cusps appear mildly calcified. Trace aortic valve regurgitation. Tricuspid Valve: Normal appearance of the tricuspid valve. Unable to obtain RVSP due to minimal presence of tricuspid regurgitation. Pulmonic Valve: Normal pulmonic valve appearance. Pericardium: Trivial pericardial effusion. Aorta: Normal aortic root. IVC: Normal size and normal respiratory collapse consistent with normal right atrial pressure. Conclusions 1.Normal left ventricular systolic function. Normal left ventricular cavity size. Normal left ventricular wall thickness. Ejection fraction is visually estimated at 55 %. 2.Normal right ventricular size. Normal right ventricular systolic function. 3.Normal appearance and function of the mitral valve with trace physiologic regurgitation. 4.No hemodynamically significant aortic stenosis by doppler. Aortic cusps appear mildly calcified. Trace aortic valve regurgitation. 5.Normal appearance of the tricuspid valve. Unable to obtain RVSP due to minimal presence of tricuspid regurgitation. Electronically Signed By: Alfa Mace 21-Aug-2016 16:36:34 -0800 Patient Name: BRIAN FINK Study Date: 21-Aug-[id number]
[2016-08-21] MEDS: GUAIFENESIN/DM 5ML CUP PO PRN (17:42)
--- NOTE | 2016-08-21 19:49 | RADRPT ---
PROCEDURE: CT abdomen and pelvis without contrast. CLINICAL INDICATION: Abdominal pain TECHNIQUE: CT scan of the abdomen and pelvis without contrast was performed. Sagittal and coronal reformatted images were obtained from the axial source images. CTDI = 15.23 mGy; DLP = 902.81 mGy-c m COMPARISON: None available. FINDINGS: Visualized lower thorax: Bronchiectasis and peribronchial thickening in the lung bases is noted wit h some bronchiolitis and subsegmental atelectasis changes in the left greater than right posterior l ower lobes. Tree in bud opacities of the inferior lingula and right lower lobe are present. There is no evidence for pleural effusion. Liver, gallbladder, pancreas and spleen: The liver is normal and size, contour and attenuation. Th ere is no evidence for a liver mass or ductal dilatation. An approximately 9 mm water attenuating le kwesi in the posterior right hepatic lobe is consistent with an incidental cyst The gallbladder is un remarkable. No common bile duct abnormality is demonstrated. The pancreas is unremarkable. The sp steve is normal in size. Adrenal glands and genitourinary system: The adrenal glands are normal bilaterally. The right kidne y demonstrates cortical thinning and hypodensities within the interpolar and lower pole cortex consi stent with simple cysts the largest 1.2 cm. There is no evidence of right renal calculus or hydrone phrosis, nonspecific stranding of the perinephric fat is present bilaterally. In the left renal pel vis is a calculus measuring approximately 8 x 6 mm (series 3 image 70), the stone with an attenuatio n of an estimated 600 HU. Some debris or tiny calculi layering within the renal pelvis are suspecte d. There is no calyceal dilatation. Small hypodensities of the thin left renal cortex are consiste nt with cysts. The ureters are unremarkable. The urinary bladder is distended and demonstrates a ca lculus in the dependent portion slightly to the right of midline the stone estimated at 4 x 4 mm (se saturnino 3 image 140). Punctate calcifications adhering to the superior wall of a right posterior urinary bladder diverticulum are present possibly adherent stones, each measuring approximately 2 mm (series 3 image 131 - 132). The size of the right posterior bladder diverticula is approximately 3 .2 cm in greatest diameter. The prostate gland is normal in size. The visualized scrotum shows no abnormality. Gastrointestinal system: The stomach is normal in caliber with no abnormality of significance. The small bowel is normal in caliber with no ileus, obstruction or wall thickening. There is no evidenc e of appendicitis. The colon shows no evidence for wall thickening or acute abnormality. There is no evidence for colitis or diverticulitis. Peritoneum, retroperitoneum, lymph nodes and vessels: The abdominal aorta is normal in caliber. The re is moderate aortic and iliac system atherosclerotic calcification. The inferior vena cava is unr emarkable. There is no evidence for adenopathy or mass. There is no ascites. No pneumoperitoneum i s present Osseous structures and musculoskeletal findings: There is no fracture, lytic or blastic lesion. Mod erate to severe anterior spondylosis from the L2 through the S1 level is present with severe degener ative disk narrowing and vacuum phenomenon at L4-5 small fat-containing left inguinal hernia is note d. The musculature and subcutaneous tissues are unremarkable. RPTAT:HJJR IMPRESSION: 1. Calculus within the left renal pelvis measures approximately 8 x 6 mm with an estimated attenuat ion of 600 HU but no associated hydronephrosis. 2. Small 4 mm calculus within the dependent portion of the urinary bladder slightly to the right of midline with suspected additional tiny adherent stones to the superior wall of a posterior right uri nary bladder diverticulum. 3. Bilateral renal cortex thinning suggesting medical renal disease with acquired cysts of the kidne ys bilaterally. 4. No evidence of bowel obstruction or ileus. 5. Bronchiolitis pattern of the lung bases. 6. Degenerative spondylosis of the lower lumbar spine with disk disease most pronounced at L4-5. 7. Aortic atherosclerosis is present. 8. Incidental simple cyst of the right hepatic lobe. Physician Dia Date Time Electronically viewed and signed by Physician Dia on 08/21/2016 19:48 /
[2016-08-21] MEDS: EZETIMIBE 10 MG TAB PO SCH (21:00)
[2016-08-21] MEDS: ZOLPIDEM 5 MG TAB PO SCH (21:00)
[2016-08-21] MEDS: ATORVASTATIN 20 MG TAB PO SCH (21:10)
[2016-08-22] VITALS (12 sets, daily range): BP systolic 110–142; BP diastolic 56–66; PULSE 62–72; RESP 18–20
[2016-08-22] MEDS: PANTOPRAZOLE (EC) 40 MG TAB PO SCH ×2 (05:05→17:58)
[2016-08-22] MEDS: SOD CHLORIDE 0.9% 1,000 ML IV SCH ×2 (05:06→18:04)
[2016-08-22] MEDS: HEPARIN 5,000 UNIT/0.5 ML SYG SC SCH ×3 (05:09→21:52)
[2016-08-22 07:35] LABS: PHOSPHORUS 3.2 mg/dl (2.5-4.9)
[2016-08-22 07:37] LABS: ALBUMIN 3.1 g/dl (3.3-4.9)
[2016-08-22 07:38] LABS: POTASSIUM 4.2 mmol/L (3.5-5.1)
[2016-08-22 07:40] LABS: ALBUMIN/GLOBULIN RATIO 1.1; BILIRUBIN,INDIRECT 0.1 mg/dl (0-1.1); BILIRUBIN,TOTAL 0.1 mg/dl (0.2-1.3); CALCIUM 8.7 mg/dl (8.4-10.2); CREATININE 1.41 mg/dl (0.61-1.24); TOTAL PROTEIN 5.9 g/dl (6.1-8.1)
[2016-08-22] MEDS: INSULIN ASPART [NOVOLOG] 3 ML PEN SC SCH ×4 (07:58→20:54)
[2016-08-22 08:03] LABS: BASOPHILS % 0.1 % (0.0-2.0); EOSINOPHILS # 0.1 10^3/ul (0.0-0.5); EOSINOPHILS % 0.8 % (0.0-7.0); HEMATOCRIT 32.4 % (42.0-52.0); HEMOGLOBIN 10.6 g/dl (14.0-18.0); LYMPHOCYTES # 1.4 10^3/ul (0.8-2.9); LYMPHOCYTES % 14.6 % (15.0-51.0); MEAN CORPUSCULAR HEMOGLOBIN 29.9 pg (29.0-33.0); MEAN CORPUSCULAR HGB CONC 32.7 g/dl (32.0-37.0); MEAN CORPUSCULAR VOLUME 91.3 fl (82.0-101.0); MONOCYTE # 1.3 10^3/ul (0.3-0.9); MONOCYTES % 13.5 % (0.0-11.0); NEUTROPHIL # 6.7 10^3/ul (1.6-7.5); NEUTROPHILS % 70.5 % (39.0-77.0); PLATELET COUNT 222 10^3/UL (140-415); RED BLOOD COUNT 3.55 10^6/ul (4.70-6.10); RED CELL DISTRIBUTION WIDTH 12.4 % (11.5-14.5); WHITE BLOOD COUNT 9.6 10^3/ul (4.8-10.8)
[2016-08-22] MEDS: FAMOTIDINE 20 MG INJ IV SCH (08:33)
[2016-08-22] MEDS: SALMETEROL/FLUTICASONE 250/50 INHA INH SCH ×2 (08:33→20:52)
[2016-08-22] MEDS: OLOPATADINE 0.1% 5 ML OPH BOTH EYES SCH ×2 (08:33→20:52)
[2016-08-22] MEDS: CYCLOSPORINE 0.05% OPH DROPERETTE BOTH EYES SCH ×2 (08:33→21:52)
[2016-08-22] MEDS: CREON (24K-76K-120K) 1 CAP PO SCH ×3 (08:33→17:58)
[2016-08-22] MEDS: FISH OIL 1,000 MG CAP PO SCH (08:34)
[2016-08-22] MEDS: GABAPENTIN 300 MG CAP PO SCH ×2 (08:34→20:53)
[2016-08-22] MEDS: MEGESTROL 40 MG TAB PO SCH (08:34)
[2016-08-22] MEDS: ARIPIPRAZOLE 2 MG TAB PO SCH (08:34)
[2016-08-22] MEDS: MEMANTINE 10 MG TAB PO SCH ×2 (08:34→21:51)
[2016-08-22] MEDS: RANOLAZINE (SR) 500 MG TAB PO SCH ×2 (08:34→20:53)
[2016-08-22] MEDS: DUTASTERIDE 0.5 MG CAP PO SCH (08:34)
[2016-08-22] MEDS: NICOTINE (14 MG/24 HR) PATCH TRANSDERM SCH (08:35)
[2016-08-22] MEDS: SOLIFENACIN 5 MG TAB PO SCH (08:35)
--- NOTE | 2016-08-22 12:17 | PN ---
Date/Time of Note Date/Time of Note DATE: 08/22/16 TIME: 12:13 Assessment/Plan VTE Prophylaxis VTE Prophylaxis Intervention: heparin Lines/Catheters IV Catheter Type (from Nrs): Peripheral IV Urinary Cath still in place: No Assessment/Plan Assessment/Plan 80 yo male with past medical history of type II DM, essential hypertension, BPH , Hyperlipidemia, Smoking abuse, GERD, CAD, Depression, Vertigo, who presents with chest pain 4 days duration. 1. Chest pain - * ACS ruled out, low likelyhood for PE per Pulm 2. Acute renal insufficiency - ?improved * patient likely has CKD / Crystals noted in urine 3. Anemia - chronic - will check iron panel, occult blood stool 4. Type II DM - controlled 5. Essential hypertension - c/w coreg, maintain sbp < 140 for concern of dissection 6. Hyperlipidemia - c/w zetia/statin - 7. CAD - continue with aspirin 8. Depression - continue with abilify 9. Dementia - c/w namenda 10. Vertigo - c/w antivert 11. GERD - c/w dexilant 12. Smoking abuse - patient counseled on cessation 13. GI ppx - dexilant 14. DVT ppx - heparin Dispo: f/u cardio recs, probable stress test Nephrology consult Exam/Review of Systems Vital Signs Vitals Vital Signs Date Time Temp Pulse Resp B/P Pulse Ox O2 Delivery O2 Flow Rate FiO2 08/22/16 12:04 69 08/22/16 11:46 98.3 20 121/60 94 08/22/16 04:54 Nasal Cannula 08/22/16 00:00 2.0 Intake and Output 08/21/16 08/21/16 08/22/16 14:59 22:59 06:59 Intake Total 346 ml 1075 ml 1100 ml Output Total 500 ml Balance 346 ml 1075 ml 600 ml Exam GENERAL: The patient is alert, awake. NECK: JVP approximately 8 cm water. CHEST: Fair movement throughout with mildly decreased breath sounds at bases bilaterally. HEART: Regular rate and rhythm. Normal S1, S2, I/ systolic murmur, nondisplaced PMI. ABDOMEN: Positive bowel sounds, soft. EXTREMITIES: No edema, 1+ pulses bilaterally posterior tibial. Results Result Diagram: 08/22/16 0637 08/22/1637 Results 24 hrs Laboratory Tests Test 08/21/16 13:14 2/22/17 16:48 08/21/16 21:09 08/22/16 06:37 Bedside Glucose 130 139 114 Alanine Aminotransferase (ALT/SGPT) 24 Albumin 3.1 L Albumin/Globulin Ratio 1.10 Alkaline Phosphatase 63 Anion Gap 19 H Aspartate Amino Transf (AST/SGOT) 13 L Basophils # 0.0 Basophils % 0.1 Blood Urea Nitrogen 20 Calcium Level 8.7 Carbon Dioxide Level 25 Chloride Level 102 Creatinine 1.41 H Direct Bilirubin 0.00 Eosinophils # 0.1 Eosinophils % 0.8 Globulin 2.80 Glucose Level 118 Hematocrit 32.4 L Hemoglobin 10.6 L Indirect Bilirubin 0.1 Lymphocytes # 1.4 Lymphocytes % 14.6 L Magnesium Level 2.0 Mean Corpuscular Hemoglobin 29.9 Mean Corpuscular Hemoglobin Concent 32.7 Mean Corpuscular Volume 91.3 Mean Platelet Volume 10.0 Monocytes # 1.3 H Monocytes % 13.5 H Neutrophils # 6.7 Neutrophils % 70.5 Nucleated Red Blood Cells # 0.0 Nucleated Red Blood Cells % 0.0 Phosphorus Level 3.2 Platelet Count 222 Potassium Level 4.2 Red Blood Count 3.55 L Red Cell Distribution Width 12.4 Sodium Level 142 Total Bilirubin 0.1 L Total Protein 5.9 #L White Blood Count 9.6 Test 08/22/16 07:43 Bedside Glucose 130 Medications Medications Current Medications Sodium Chloride (NS) 1,000 ml @ 75 mls/hr [id number] IV Last administered on 08/22t 05:06; Admin Dose 75 MLS/HR; Start 08/21/16 at 03:45 Ondansetron HCl (Zofran Inj) 4 mg Q6H PRN IV NAUSEA AND/OR VOMITING; Start at 00:00 Nitroglycerin (Nitroglycerin (Sl Tab) 0.4 Mg) 1 tab Q5M PRN SL CHEST PAIN; Start 08/21/16 at 00:00 Acetaminophen (Tylenol Liquid) 650 mg Q6H PRN PO PAIN LEVEL 1-3 OR FEVER; Start 08/21/16 at 00:00 Morphine Sulfate (morphine) 2 mg Q4H PRN IV PAIN LEVEL 7-10; Start 08/21/16 at 00:00 Lorazepam (Ativan) 1 mg Q2H PRN IV ANXIETY; Start 08/21/16 at 00:00 Docusate Sodium (Colace) 100 mg Q12H PRN PO CONSTIPATION; Start 08/21/16 at 00: 00 Famotidine (Pepcid Iv) 20 mg DAILY IV Last administered on 08/22/16 08:33; Admin Dose 20 MG; Start 08/21/16 at 09:00 Heparin Sodium (Porcine) (Heparin (5000 Units/0.5 ml)) 5,000 unit Q8 SC Last administered on 08/22/16 05:09; Admin Dose 5,000 UNIT; Start 08/21/16 at 06:00 Aripiprazole (Abilify) 2 mg DAILY PO Last administered on 08/22/16 08:34; Admin Dose 2 MG; Start 08/21/16 at 09:00 Carvedilol (Coreg) 25 mg BID PO Last administered on 08/22/16 08:34; Admin Dose 25 MG; Start 08/21/16 at 09:00 Cyclosporine (Restasis) 1 drop Q12 BOTH EYES Last administered on 08/22/16 08: 33; Admin Dose 1 DROP; Start 08/21/16 at 09:00 Dutasteride (Avodart) 0.5 mg DAILY PO Last administered on 08/22/16 08:34; Admin Dose 0.5 MG; Start 08/21/16 at 09:00 EZETIMIBE (Zetia) 10 mg HS PO ; Start 08/21/16 at 21:00 Gabapentin (Neurontin) 300 mg BID PO Last administered on 08/22/16 08:34; Admin Dose 300 MG; Start 08/21/16 at 09:00 Meclizine HCl (Antivert) 25 mg BID PRN PO DIZZINESS Last administered on 08:44; Admin Dose 25 MG; Start 08/21/16 at 00:00 Memantine (Namenda) 10 mg BID PO Last administered on 08/22/16 08:34; Admin Dose 10 MG; Start 08/21/16 at 09:00 Ranolazine (Ranexa) 500 mg Q12 PO Last administered on 08/22/16 08:34; Admin Dose 500 MG; Start 08/21/16 at 09:00 Salmeterol Xinafoate/ Fluticasone (Advair 250/50 Diskus) 1 inh BID INH Last administered on 08/22/16 08:33; Admin Dose 1 INH; Start 08/21/16 at 09:00 Solifenacin (Vesicare) 5 mg DAILY PO Last administered on 08/22/16 08:35; Admin Dose 5 MG; Start 08/21/16 at 09:00 Zolpidem Tartrate (Ambien) 5 mg HS PO ; Start 08/21/16 at 21:00 Pantoprazole (Protonix Tab) 40 mg BID@06,18 PO Last administered on 08/22/16 05:05; Admin Dose 40 MG; Start 08/21/16 at 06:00 Megestrol Acetate (Megace) 20 mg DAILY PO Last administered on 08/22/16 08:34 ; Admin Dose 20 MG; Start 08/21/16 at 09:00 Olopatadine HCl (Patanol 0.1% Oph) 1 drop BID BOTH EYES Last administered on 08:33; Admin Dose 1 DROP; Start 08/21/16 at 14:00 Atorvastatin Calcium (Lipitor) 20 mg DAILY@21 PO Last administered on 21:10; Admin Dose 20 MG; Start 08/21/16 at 21:00 Miscellaneous Information 1 ea NOTE XX ; Start 08/21/16 at 01:00 Glucose (Glutose) 15 gm Q15M PRN PO DECREASED GLUCOSE; Start 08/21/16 at 01:00 Glucose (Glutose) 22.5 gm Q15M PRN PO DECREASED GLUCOSE; Start 08/21/16 at 01: 00 Dextrose (D50w Syringe) 25 ml Q15M PRN IV DECREASED GLUCOSE; Start 08/21/16 at 01:00 Dextrose (D50w Syringe) 50 ml Q15M PRN IV DECREASED GLUCOSE; Start 08/21/16 at 01:00 Glucagon (Glucagen) 1 mg Q15M PRN IM DECREASED GLUCOSE; Start 08/21/16 at 01:00 Glucose (Glutose) 15 gm Q15M PRN BUCCAL DECREASED GLUCOSE; Start 08/21/16 at 01 :00 Nicotine (Nicoderm 14 Mg/ 24hr) 1 patch DAILY TRANSDERM Last administered on 08:35; Admin Dose 1 PATCH; Start 08/21/16 at 12:30 Fish Oil (Fish Oil) 1,000 mg AM PO Last administered on 08/22/16 08:34; Admin Dose 1,000 MG; Start 08/22/16 at 09:00 Guaifenesin/ Dextromethorphan (Robitussin Dm Liquid Cup) 5 ml Q4H PRN PO COUGH Last administered on 08/21/16 17:42; Admin Dose 5 ML; Start 08/21/16 at 17:00 KEVIN CASTANON Aug 22, 2016 12:17
--- NOTE | 2016-08-22 12:44 | CONS ---
Date/Time of Note Date/Time of Note DATE: 08/22/16 TIME: 12:41 Assessment/Plan Assessment/Plan Additional Assessment/Plan Assessment and recommendations; 1. Patient admitted for no specific abdominal pain as well as shortness of breath which possibly could be from acute bronchospasm. Has been marked overall clinical improvement. Next 2. Remote history of coronary artery disease status post angina plasty. Workup has been negative. 3. Stable renal insufficiency. Continue current treatment. Patient can be discharged home. Consultation Date/Type/Reason Admit Date/Time Aug 21, 2016 at 00:39 Initial Consult Date 08/21/16 Type of Consultation: Pulmonary/critical care 24 HR Interval Summary Free Text/Dictation Patient is doing very well. Has been transferred out of ICU to the medical floor. Denies any shortness of breath, chest pain, wheezing. Any sputum production. General examination; elderly male, currently eating lunch in bed. Exam/Review of Systems Vital Signs Vitals Vital Signs Date Time Temp Pulse Resp B/P Pulse Ox O2 Delivery O2 Flow Rate FiO2 08/22/16 12:04 69 08/22/16 11:46 98.3 20 121/60 94 08/22/16 04:54 Nasal Cannula 08/22/16 00:00 2.0 Intake and Output 08/21/16 08/21/16 08/22/16 15:00 23:00 07:00 Intake Total 346 ml 1075 ml 1100 ml Output Total 500 ml Balance 346 ml 1075 ml 600 ml Exam H EENT examination; supple neck, no JVD. No lymphadenopathy. Pharynx is clear. Patient has fair dentition. No neck masses. No thyromegaly. Chest examination; diminished but clear breath sounds bilaterally. S1-S2 audible no murmurs. Regular rhythm. Abdomen examination; soft, nontender. No organomegaly. Bowel sounds audible. Extremity examination; no peripheral edema. [facility] [employer] [employer] examination; no focal deficit. Results Result Diagram: 08/22/16 0637 08/22/16 0637 Results 24 hrs Laboratory Tests Test 08/21/16 13:14 08/21/16 16:48 08/21/16 21:09 08/22/16 06:37 Bedside Glucose 130 139 114 Alanine Aminotransferase (ALT/SGPT) 24 Albumin 3.1 L Albumin/Globulin Ratio 1.10 Alkaline Phosphatase 63 Anion Gap 19 H Aspartate Amino Transf (AST/SGOT) 13 L Basophils # 0.0 Basophils % 0.1 Blood Urea Nitrogen 20 Calcium Level 8.7 Carbon Dioxide Level 25 Chloride Level 102 Creatinine 1.41 H Direct Bilirubin 0.00 Eosinophils # 0.1 Eosinophils % 0.8 Globulin 2.80 Glucose Level 118 Hematocrit 32.4 L Hemoglobin 10.6 L Indirect Bilirubin 0.1 Lymphocytes # 1.4 Lymphocytes % 14.6 L Magnesium Level 2.0 Mean Corpuscular Hemoglobin 29.9 Mean Corpuscular Hemoglobin Concent 32.7 Mean Corpuscular Volume 91.3 Mean Platelet Volume 10.0 Monocytes # 1.3 H Monocytes % 13.5 H Neutrophils # 6.7 Neutrophils % 70.5 Nucleated Red Blood Cells # 0.0 Nucleated Red Blood Cells % 0.0 Phosphorus Level 3.2 Platelet Count 222 Potassium Level 4.2 Red Blood Count 3.55 L Red Cell Distribution Width 12.4 Sodium Level 142 Total Bilirubin 0.1 L Total Protein 5.9 #L White Blood Count 9.6 Test 08/22/16 07:43 08/22/16 12:13 Bedside Glucose 130 127 Medications Medications Current Medications Sodium Chloride (NS) 1,000 ml @ 75 mls/hr [id number] IV Last administered on 08/22 05:06; Admin Dose 75 MLS/HR; Start 08/21/16 at 03:45 Ondansetron HCl (Zofran Inj) 4 mg Q6H PRN IV NAUSEA AND/OR VOMITING; Start at 00:00 Nitroglycerin (Nitroglycerin (Sl Tab) 0.4 Mg) 1 tab Q5M PRN SL CHEST PAIN; Start 08/21/16 at 00:00 Acetaminophen (Tylenol Liquid) 650 mg Q6H PRN PO PAIN LEVEL 1-3 OR FEVER; Start 08/21/16 at 00:00 Morphine Sulfate (morphine) 2 mg Q4H PRN IV PAIN LEVEL 7-10; Start 08/21/16 at 00:00 Lorazepam (Ativan) 1 mg Q2H PRN IV ANXIETY; Start 08/21/16 at 00:00 Docusate Sodium (Colace) 100 mg Q12H PRN PO CONSTIPATION; Start 08/21/16 at 00: 00 Famotidine (Pepcid Iv) 20 mg DAILY IV Last administered on 08/22/16 08:33; Admin Dose 20 MG; Start 08/21/16 at 09:00 Heparin Sodium (Porcine) (Heparin (5000 Units/0.5 ml)) 5,000 unit Q8 SC Last administered on 08/22/16 05:09; Admin Dose 5,000 UNIT; Start 08/21/16 at 06:00 Aripiprazole (Abilify) 2 mg DAILY PO Last administered on 08/22/16 08:34; Admin Dose 2 MG; Start 08/21/16 at 09:00 Carvedilol (Coreg) 25 mg BID PO Last administered on 08/22/16 08:34; Admin Dose 25 MG; Start 08/21/16 at 09:00 Cyclosporine (Restasis) 1 drop Q12 BOTH EYES Last administered on 08/22/16 08: 33; Admin Dose 1 DROP; Start 08/21/16 at 09:00 Dutasteride (Avodart) 0.5 mg DAILY PO Last administered on 08/22/16 08:34; Admin Dose 0.5 MG; Start 08/21/16 at 09:00 EZETIMIBE (Zetia) 10 mg HS PO ; Start 08/21/16 at 21:00 Gabapentin (Neurontin) 300 mg BID PO Last administered on 08/22/16 08:34; Admin Dose 300 MG; Start 08/21/16 at 09:00 Meclizine HCl (Antivert) 25 mg BID PRN PO DIZZINESS Last administered on 08:44; Admin Dose 25 MG; Start 08/21/16 at 00:00 Memantine (Namenda) 10 mg BID PO Last administered on 08/22/16 08:34; Admin Dose 10 MG; Start 08/21/16 at 09:00 Ranolazine (Ranexa) 500 mg Q12 PO Last administered on 08/22/16 08:34; Admin Dose 500 MG; Start 08/21/16 at 09:00 Salmeterol Xinafoate/ Fluticasone (Advair 250/50 Diskus) 1 inh BID INH Last administered on 08/22/16 08:33; Admin Dose 1 INH; Start 08/21/16 at 09:00 Solifenacin (Vesicare) 5 mg DAILY PO Last administered on 08/22/16 08:35; Admin Dose 5 MG; Start 08/21/16 at 09:00 Zolpidem Tartrate (Ambien) 5 mg HS PO ; Start 08/21/16 at 21:00 Pantoprazole (Protonix Tab) 40 mg BID@06,18 PO Last administered on 08/22/16 05:05; Admin Dose 40 MG; Start 08/21/16 at 06:00 Megestrol Acetate (Megace) 20 mg DAILY PO Last administered on 08/22/16 08:34 ; Admin Dose 20 MG; Start 08/21/16 at 09:00 Olopatadine HCl (Patanol 0.1% Oph) 1 drop BID BOTH EYES Last administered on 08:33; Admin Dose 1 DROP; Start 08/21/16 at 14:00 Atorvastatin Calcium (Lipitor) 20 mg DAILY@21 PO Last administered on 21:10; Admin Dose 20 MG; Start 08/21/16 at 21:00 Miscellaneous Information 1 ea NOTE XX ; Start 08/21/16 at 01:00 Glucose (Glutose) 15 gm Q15M PRN PO DECREASED GLUCOSE; Start 08/21/16 at 01:00 Glucose (Glutose) 22.5 gm Q15M PRN PO DECREASED GLUCOSE; Start 08/21/16 at 01: 00 Dextrose (D50w Syringe) 25 ml Q15M PRN IV DECREASED GLUCOSE; Start 08/21/16 at 01:00 Dextrose (D50w Syringe) 50 ml Q15M PRN IV DECREASED GLUCOSE; Start 08/21/16 at 01:00 Glucagon (Glucagen) 1 mg Q15M PRN IM DECREASED GLUCOSE; Start 08/21/16 at 01:00 Glucose (Glutose) 15 gm Q15M PRN BUCCAL DECREASED GLUCOSE; Start 08/21/16 at 01 :00 Nicotine (Nicoderm 14 Mg/ 24hr) 1 patch DAILY TRANSDERM Last administered on 08:35; Admin Dose 1 PATCH; Start 08/21/16 at 12:30 Fish Oil (Fish Oil) 1,000 mg AM PO Last administered on 08/22/16 08:34; Admin Dose 1,000 MG; Start 08/22/16 at 09:00 Guaifenesin/ Dextromethorphan (Robitussin Dm Liquid Cup) 5 ml Q4H PRN PO COUGH Last administered on 08/21/16t 17:42; Admin Dose 5 ML; Start 08/21/16 at 17:00 DORIE MILLER Aug 22, 2016 12:44
--- NOTE | 2016-08-22 12:45 | CONS ---
DATE OF ADMISSION: 08/21/2016 DATE OF CONSULTATION: 08/22/2016 TYPE OF CONSULTATION: Nephrology REFERRING PHYSICIAN: Virgil Lakhani MD REASON FOR CONSULTATION: Acute kidney injury versus acute kidney injury on chronic kidney disease w ith nephrolithiasis causing mild hydronephrosis. HISTORY OF PRESENT ILLNESS: This is an 80-year-old male with a past medical history of coronary art cricket disease nonobstructive by catheterization 7 years prior, gastroesophageal reflux disease, kevin ia, depression, dyslipidemia, hypertension, diabetes mellitus, who presented with a complaint of brigida st pain, shortness of breath. The patient has been having severe shortness of breath with possible suspicion of pulmonary embolism versus aortic dissection. The patient was admitted to the ICU, was evaluated by cardiology and pulmonary service for possible pulmonary embolism. He is noted to have acute kidney injury with a creatinine of 1.6. He had a CT abdomen and pelvis without contrast done in the emergency room that was suspicious for bilateral nephrolithiasis, approximately 8 x 6 mm size of a kidney stone on the left renal pelvis with suspicious mild hydronephrosis and there was a smal l calculus in the urinary bladder. The patient has echogenic kidneys consistent with acquired cysts of the kidneys bilaterally. At the time of my evaluation, he is chest pain free. His shortness of breath is better. He denies any dysuria, hematuria, any history of kidney stone or kidney cyst. He also denies any history of i buprofen, Motrin or Advil use. REVIEW OF SYSTEMS: As per HPI. PAST MEDICAL HISTORY: Notable for hypertension, hyperlipidemia, diabetes mellitus, history of coron dylan artery disease, status post cardiac catheterization approximately 7 years before, nonobstructive . Possible history of chronic kidney disease secondary to diabetic nephropathy, unknown stage. PAST SURGICAL HISTORY: History of cardiac catheterization, appendectomy, tonsillectomy. SOCIAL HISTORY: No smoking, alcohol or recreational drug use. FAMILY HISTORY: No family history of stroke or cardiac disease in the family. PHYSICAL EXAMINATION: VITAL SIGNS: Temperature 98.3, heart rate 70, respiration 20, blood pressure 121/60, saturation 94% on 2 liters nasal cannula. GENERAL: Awake, alert, in no distress. HEENT: Normal. Oropharynx clear. NECK: Supple, no JVD, no lymphadenopathy. LUNGS: Clear to auscultation. No crackles, no wheezes. HEART: S1, S2, with regular rhythm, no murmur. ABDOMEN: Soft, tender to palpation in the back. No rebound, no guarding. Bowel sounds are present . EXTREMITIES: No clubbing, cyanosis, or edema. NEUROLOGICAL: Nonfocal, intact. PSYCHIATRIC: Appropriate affect and mood. LABORATORY DATA/DIAGNOSTIC IMAGIN. Sodium 140, potassium 4.4, chloride 101, bicarbonate 22, BUN 24, creatinine 1.6, glucose 151, ca lcium 9.2. LFTs are normal. Magnesium 1.6. 2. CT abdomen and pelvis without contrast done in the emergency room shows an 8 x 6 mm left renal p alexander calculus with mild hydronephrosis, small calculus in the urinary bladder and bilateral renal c ortex thinning suggestive of medical renal disease with acquired cysts of the kidneys bilaterally. 3. V/Q scan done in the emergency room with multiple matched defects bilaterally. 4. Chest x-ray shows no evidence of any active cardiopulmonary disease with aortic atherosclerosis. 5. Urinalysis shows 3+ hemoglobin, 10 to 25 RBCs, negative glucose, negative leukocyte esterase, an d trace amount of protein. 6. PT 14, PTT 31, INR 1.12. D-dimer 765. IMPRESSION: This is an 80-year-old male who gets admitted for chest pain with shortness of breath w ith suspicion of pulmonary embolism. His CT has been negative, but it shows bilateral nephrolithias is. Renal has been consulted for: 1. Acute kidney injury versus acute kidney injury on chronic kidney disease stage III secondary to prerenal azotemia along with bilateral nephrolithiasis causing obstruction. 2. Hematuria with trace proteinuria, likely secondary to chronic kidney disease and secondary to ki dney stone. 3. History of chronic kidney disease, unknown stage, secondary to diabetic nephropathy with acquire d cysts bilaterally on the CT scan. 4. History of coronary artery disease, nonobstructive. 6. History of hypertension. 7. Hyperlipidemia 8. History of diabetes mellitus. PLAN: Thank you, Dr. Virgil Lakhani, for this consultation. I will order the patient's urine studies including a urine protein, urine creatinine, urine sodium, urine eosinophils. I will also order the CK total and uric acid for further workup of chronic kidney disease. Renal ul trasound will be ordered to assess for left renal pelvis kidney stone and to rule out hydronephrosis . The patient will be followed up by pulmonary and cardiology for his other medical problems. Once again, thank you, Dr. Lakhani, for this consultation. I will continue to follow this patient along with the primary care service, cardiology and pulmonary service. Total time spent in this patient's evaluation, making assessment, plan, communicating, updating michael ent/family member and also communicating with the nursing staff is more than 60 minutes. Dictated By: EUGENIA AHUJA MD, KP/SOFIYA Conf#: [id number] DID#: [id number]
[2016-08-22 13:59] LABS: PROTEIN/CREAT RATIO 0.42 RATIO
--- NOTE | 2016-08-22 14:31 | CONS ---
Date/Time of Note Date/Time of Note DATE: 08/22/16 TIME: 14:27 Assessment/Plan Assessment/Plan Chief Complaint/Hosp Course IMPRESSION: 1. Chest pain, assess for acute coronary syndrome with negative troponins x3 at this time./NL EF by echo 2. Hypertension, under reasonable control. 3. Dyslipidemia. 4. History of coronary artery disease and possible angina on above medications. 5. Possible pulmonary embolism by VQ scan.-No CTA done ? secondary to renal failure likely 6. Ongoing tobacco usage. 7. Chronic obstructive pulmonary disease with borderline urinary tract infection. 8. Renal failure, slowly improving. 9. Anemia. Recc: -Tele -serial ecg's -Continue coreg -Continue fish oil/zetia -Follow volume status closely -AM lexiscan Problems: Consultation Date/Type/Reason Admit Date/Time Aug 21, 2016 at 00:39 Initial Consult Date 08/21/16 Type of Consultation: Cardiology Reason for Consultation chest pain Referring Provider: DAVID MONTES MD Exam/Review of Systems Vital Signs Vitals Vital Signs Date Time Temp Pulse Resp B/P Pulse Ox O2 Delivery O2 Flow Rate FiO2 08/22/16 12:04 69 08/22/16 11:46 98.3 20 121/60 94 08/22/16 04:54 Nasal Cannula 08/22/16 00:00 2.0 Intake and Output 08/21/16 08/21/16 08/22/16 14:59 22:59 06:59 Intake Total 346 ml 1075 ml 1100 ml Output Total 500 ml Balance 346 ml 1075 ml 600 ml Exam Review of Systems: CONSTITUTIONAL: No fevers, chills. PULMONARY: mild sob CARDIOVASCULAR: No chest pain/palpitations GASTROINTESTINAL: No nausea/vomiting. GENITOURINARY: No hematuria/dysuria. MUSCULOSKELETAL: No myagias/arthalgias. PSYCHIATRIC: The patient denies depression. NEUROLOGIC: No weakness Constitutional: alert Psych: no complaints Head: normocephalic ENMT: mucosa pink and moist Neck: jvd (8 cm water), supple Respiratory: diminished breath sounds (at bases/B) Cardiovascular: regular rate and rhythm Gastrointestinal: non-tender, soft Musculoskeletal: muscle tone (normal) Extremities: edema (none) Neurological: lethargic Results Result Diagram: 08/22/1637 08/22/16 0637 Results 24 hrs Laboratory Tests Test 08/21/16 16:48 08/21/16 21:09 08/22/16 06:37 08/22/16 07:43 Bedside Glucose 139 114 130 Alanine Aminotransferase (ALT/SGPT) 24 Albumin 3.1 L Albumin/Globulin Ratio 1.10 Alkaline Phosphatase 63 Anion Gap 19 H Aspartate Amino Transf (AST/SGOT) 13 L Basophils # 0.0 Basophils % 0.1 Blood Urea Nitrogen 20 Calcium Level 8.7 Carbon Dioxide Level 25 Chloride Level 102 Creatinine 1.41 H Direct Bilirubin 0.00 Eosinophils # 0.1 Eosinophils % 0.8 Globulin 2.80 Glucose Level 118 Hematocrit 32.4 L Hemoglobin 10.6 L Indirect Bilirubin 0.1 Lymphocytes # 1.4 Lymphocytes % 14.6 L Magnesium Level 2.0 Mean Corpuscular Hemoglobin 29.9 Mean Corpuscular Hemoglobin Concent 32.7 Mean Corpuscular Volume 91.3 Mean Platelet Volume 10.0 Monocytes # 1.3 H Monocytes % 13.5 H Neutrophils # 6.7 Neutrophils % 70.5 Nucleated Red Blood Cells # 0.0 Nucleated Red Blood Cells % 0.0 Phosphorus Level 3.2 Platelet Count 222 Potassium Level 4.2 Red Blood Count 3.55 L Red Cell Distribution Width 12.4 Sodium Level 142 Total Bilirubin 0.1 L Total Protein 5.9 #L White Blood Count 9.6 Test 08/22/16 12:13 08/22/16 13:00 Bedside Glucose 127 Urine Protein/Creatinine Ratio 0.42 Urine Random Creatinine 51.83 Urine Random Sodium 93 H Urine Total Protein 22.0 H Medications Medications Current Medications Sodium Chloride (NS) 1,000 ml @ 75 mls/hr [id number] IV Last administered on 08/22t 05:06; Admin Dose 75 MLS/HR; Start 08/21/16 at 03:45 Ondansetron HCl (Zofran Inj) 4 mg Q6H PRN IV NAUSEA AND/OR VOMITING; Start at 00:00 Nitroglycerin (Nitroglycerin (Sl Tab) 0.4 Mg) 1 tab Q5M PRN SL CHEST PAIN; Start 08/21/16 at 00:00 Acetaminophen (Tylenol Liquid) 650 mg Q6H PRN PO PAIN LEVEL 1-3 OR FEVER; Start 08/21/16 at 00:00 Morphine Sulfate (morphine) 2 mg Q4H PRN IV PAIN LEVEL 7-10; Start 08/21/16 at 00:00 Lorazepam (Ativan) 1 mg Q2H PRN IV ANXIETY; Start 08/21/16 at 00:00 Docusate Sodium (Colace) 100 mg Q12H PRN PO CONSTIPATION; Start 08/21/16 at 00: 00 Famotidine (Pepcid Iv) 20 mg DAILY IV Last administered on 08/22/16 08:33; Admin Dose 20 MG; Start 08/21/16 at 09:00 Heparin Sodium (Porcine) (Heparin (5000 Units/0.5 ml)) 5,000 unit Q8 SC Last administered on 08/22/16 05:09; Admin Dose 5,000 UNIT; Start 08/21/16 at 06:00 Aripiprazole (Abilify) 2 mg DAILY PO Last administered on 08/22/16 08:34; Admin Dose 2 MG; Start 08/21/16 at 09:00 Carvedilol (Coreg) 25 mg BID PO Last administered on 08/22/16 08:34; Admin Dose 25 MG; Start 08/21/16 at 09:00 Cyclosporine (Restasis) 1 drop Q12 BOTH EYES Last administered on 08/22/16 08: 33; Admin Dose 1 DROP; Start 08/21/16 at 09:00 Dutasteride (Avodart) 0.5 mg DAILY PO Last administered on 08/22/16 08:34; Admin Dose 0.5 MG; Start 08/21/16 at 09:00 EZETIMIBE (Zetia) 10 mg HS PO ; Start 08/21/16 at 21:00 Gabapentin (Neurontin) 300 mg BID PO Last administered on 08/22/16 08:34; Admin Dose 300 MG; Start 08/21/16 at 09:00 Meclizine HCl (Antivert) 25 mg BID PRN PO DIZZINESS Last administered on 08:44; Admin Dose 25 MG; Start 08/21/16 at 00:00 Memantine (Namenda) 10 mg BID PO Last administered on 08/22/16 08:34; Admin Dose 10 MG; Start 08/21/16 at 09:00 Ranolazine (Ranexa) 500 mg Q12 PO Last administered on 2/23/17at 08:34; Admin Dose 500 MG; Start 08/21/16 at 09:00 Salmeterol Xinafoate/ Fluticasone (Advair 250/50 Diskus) 1 inh BID INH Last administered on 08/22/16 08:33; Admin Dose 1 INH; Start 08/21/16 at 09:00 Solifenacin (Vesicare) 5 mg DAILY PO Last administered on 08/22/16 08:35; Admin Dose 5 MG; Start 08/21/16 at 09:00 Zolpidem Tartrate (Ambien) 5 mg HS PO ; Start 08/21/16 at 21:00 Pantoprazole (Protonix Tab) 40 mg BID@06,18 PO Last administered on 08/22/16 05:05; Admin Dose 40 MG; Start 08/21/16 at 06:00 Megestrol Acetate (Megace) 20 mg DAILY PO Last administered on 08/22/16 08:34 ; Admin Dose 20 MG; Start 08/21/16 at 09:00 Olopatadine HCl (Patanol 0.1% Oph) 1 drop BID BOTH EYES Last administered on 08:33; Admin Dose 1 DROP; Start 08/21/16 at 14:00 Atorvastatin Calcium (Lipitor) 20 mg DAILY@21 PO Last administered on 21:10; Admin Dose 20 MG; Start 08/21/16 at 21:00 Miscellaneous Information 1 ea NOTE XX ; Start 08/21/16 at 01:00 Glucose (Glutose) 15 gm Q15M PRN PO DECREASED GLUCOSE; Start 08/21/16 at 01:00 Glucose (Glutose) 22.5 gm Q15M PRN PO DECREASED GLUCOSE; Start 08/21/16 at 01: 00 Dextrose (D50w Syringe) 25 ml Q15M PRN IV DECREASED GLUCOSE; Start 08/21/16 at 01:00 Dextrose (D50w Syringe) 50 ml Q15M PRN IV DECREASED GLUCOSE; Start 08/21/16 at 01:00 Glucagon (Glucagen) 1 mg Q15M PRN IM DECREASED GLUCOSE; Start 08/21/16 at 01:00 Glucose (Glutose) 15 gm Q15M PRN BUCCAL DECREASED GLUCOSE; Start 08/21/16 at 01 :00 Nicotine (Nicoderm 14 Mg/ 24hr) 1 patch DAILY TRANSDERM Last administered on 08:35; Admin Dose 1 PATCH; Start 08/21/16 at 12:30 Fish Oil (Fish Oil) 1,000 mg AM PO Last administered on 08/22/16 08:34; Admin Dose 1,000 MG; Start 08/22/16 at 09:00 Guaifenesin/ Dextromethorphan (Robitussin Dm Liquid Cup) 5 ml Q4H PRN PO COUGH Last administered on 08/21/16 17:42; Admin Dose 5 ML; Start 08/21/16 at 17:00 DARIEN DEVINE Aug 22, 2016 14:31
--- NOTE | 2016-08-22 19:29 | RADRPT ---
PROCEDURE: Renal US. CLINICAL INDICATION: Acute upon chronic renal failure TECHNIQUE: Multiple sonographic images of the kidneys were obtained. The images were reviewed on a PACS workstation. COMPARISON: CT abdomen and pelvis 08/21/2016 FINDINGS: Right kidney: Normal in size and contour with increased cortical echogenicity. No solid mass, calc ulus or hydronephrosis is present. Simple appearing cyst is approximately 1.4 x 1.3 x 1.2 cm in the parapelvic lower pole. Renal size is estimated at 9.5 x 4.3 cm. Left kidney: Normal in size and contour with increased cortical echogenicity. The calculi seen on the CT are not delineated on this exam. There is no evidence of solid mass or hydronephrosis. A mi d cortical cyst measures 1.3 x 1.2 x 1.2 cm. Renal size is estimated at 10.5 x 6.2 cm. Urinary bladder: Shadowing echogenic focus in the dependent portion measures 7 mm and corresponds t o the calculus seen on the CT. The pre void volume is estimated at 663 cc. No postvoid volume is a cquired. The diverticula seen on the CT is not delineated. RPTAT:HJJR IMPRESSION: 1. Left intrarenal calculi seen on the CT of 08/21/2016 are not identified on this exam. 2. Normal renal size with mild increase renal cortex echogenicity concerning for medical renal disea se with small acquired cysts of the kidneys bilaterally. 3. No evidence of hydronephrosis. 4. Shadowing 7 mm urinary bladder calculus. Bladder diverticulum seen on CT is not evident on this exam. Physician Dia Date Time Electronically viewed and signed by Physician Dia on 08/22/2016 19:28 /
[2016-08-22] MEDS: EZETIMIBE 10 MG TAB PO SCH (20:53)
[2016-08-22] MEDS: ZOLPIDEM 5 MG TAB PO SCH (20:54)
[2016-08-22] MEDS: ATORVASTATIN 20 MG TAB PO SCH (20:54)
[2016-08-23] VITALS (10 sets, daily range): BP systolic 113–139; BP diastolic 60–71; PULSE 66–75; RESP 18–20
[2016-08-23] MEDS: PANTOPRAZOLE (EC) 40 MG TAB PO SCH ×2 (06:08→17:22)
[2016-08-23] MEDS: HEPARIN 5,000 UNIT/0.5 ML SYG SC SCH ×3 (06:09→22:33)
[2016-08-23 07:22] LABS: ADD SCAN DIFF NO
[2016-08-23 07:31] LABS: BASOPHILS % 0.1 % (0.0-2.0); EOSINOPHILS # 0.1 10^3/ul (0.0-0.5); EOSINOPHILS % 0.9 % (0.0-7.0); HEMOGLOBIN 10.4 g/dl (14.0-18.0); LYMPHOCYTES # 1.6 10^3/ul (0.8-2.9); LYMPHOCYTES % 20.4 % (15.0-51.0); MEAN CORPUSCULAR HEMOGLOBIN 29.9 pg (29.0-33.0); MEAN CORPUSCULAR HGB CONC 32.5 g/dl (32.0-37.0); MONOCYTE # 1.1 10^3/ul (0.3-0.9); NEUTROPHIL # 5.2 10^3/ul (1.6-7.5); PLATELET COUNT 226 10^3/UL (140-415); RED BLOOD COUNT 3.48 10^6/ul (4.70-6.10); RED CELL DISTRIBUTION WIDTH 12.4 % (11.5-14.5); WHITE BLOOD COUNT 8.1 10^3/ul (4.8-10.8)
[2016-08-23] MEDS: INSULIN ASPART [NOVOLOG] 3 ML PEN SC SCH ×4 (07:41→21:00)
[2016-08-23 07:43] LABS: ALBUMIN 3.1 g/dl (3.3-4.9); POTASSIUM 5.9 mmol/L (3.5-5.1)
[2016-08-23 07:45] LABS: CREATININE 1.62 mg/dl (0.61-1.24); URIC ACID 5.3 mg/dl (3.1-7.9)
[2016-08-23 07:46] LABS: ALBUMIN/GLOBULIN RATIO 1.14; BILIRUBIN,INDIRECT 0.1 mg/dl (0-1.1); BILIRUBIN,TOTAL 0.1 mg/dl (0.2-1.3); CALCIUM 9.3 mg/dl (8.4-10.2); TOTAL PROTEIN 5.8 g/dl (6.1-8.1)
[2016-08-23] MEDS: NICOTINE (14 MG/24 HR) PATCH TRANSDERM SCH (08:35)
[2016-08-23] MEDS: SALMETEROL/FLUTICASONE 250/50 INHA INH SCH ×2 (08:35→21:36)
[2016-08-23] MEDS: OLOPATADINE 0.1% 5 ML OPH BOTH EYES SCH ×2 (08:36→21:36)
[2016-08-23] MEDS: FAMOTIDINE 20 MG INJ IV SCH (08:36)
[2016-08-23] MEDS: CYCLOSPORINE 0.05% OPH DROPERETTE BOTH EYES SCH ×2 (08:37→21:36)
[2016-08-23] MEDS: GABAPENTIN 300 MG CAP PO SCH ×2 (08:39→21:35)
[2016-08-23] MEDS: MEMANTINE 10 MG TAB PO SCH ×2 (08:39→21:00)
[2016-08-23] MEDS: CREON (24K-76K-120K) 1 CAP PO SCH ×3 (08:39→17:22)
[2016-08-23] MEDS: DUTASTERIDE 0.5 MG CAP PO SCH (08:39)
[2016-08-23] MEDS: FISH OIL 1,000 MG CAP PO SCH (08:39)
[2016-08-23] MEDS: RANOLAZINE (SR) 500 MG TAB PO SCH ×2 (08:39→21:35)
[2016-08-23] MEDS: SOLIFENACIN 5 MG TAB PO SCH (08:39)
[2016-08-23] MEDS: ARIPIPRAZOLE 2 MG TAB PO SCH (08:39)
[2016-08-23] MEDS: MEGESTROL 40 MG TAB PO SCH (08:39)
[2016-08-23] MEDS: SOD CHLORIDE 0.9% 1,000 ML IV SCH ×2 (08:40→12:30)
[2016-08-23] MEDS: GUAIFENESIN/DM 5ML CUP PO PRN ×2 (08:46→22:32)
[2016-08-23] MEDS ORDERED: NA POLYST SULFON 15 GM/60 ML BTL PO ONE ×2 (10:00→14:00)
--- NOTE | 2016-08-23 13:17 | CONS ---
Date/Time of Note Date/Time of Note DATE: 08/23/16 TIME: 13:12 Assessment/Plan Assessment/Plan Additional Assessment/Plan 1. Acute kidney injury versus acute kidney injury on chronic kidney disease stage III secondary to prerenal azotemia along with bilateral nephrolithiasis causing obstruction. 2. Hematuria with trace proteinuria, likely secondary to chronic kidney disease and secondary to kidney stone. 3. History of chronic kidney disease, unknown stage, secondary to diabetic nephropathy with acquired cysts bilaterally on the CT scan. 4. History of coronary artery disease, nonobstructive. 6. History of hypertension. 7. Hyperlipidemia 8. History of diabetes mellitus. PLAN: kayexalate for hyperkalemia switch IVF to 1/2 NS at 50 cc/ hr will monitor Na and creatinine Will follow up Consultation Date/Type/Reason Admit Date/Time Aug 22, 2016 at 12:36 Initial Consult Date 08/22/16 Type of Consultation: NEPHROLOGY Reason for Consultation Acute kidney injury, Hyperkalemia Referring Provider: DAVID MONTES MD 24 HR Interval Summary Free Text/Dictation Cr 1.62, K 5.9. pt dose not like kayexalate Exam/Review of Systems Vital Signs Vitals Vital Signs Date Time Temp Pulse Resp B/P Pulse Ox O2 Delivery O2 Flow Rate FiO2 08/23/16 12:40 69 08/23/16 12:14 98.3 20 127/60 98 08/22/16 20:00 Nasal Cannula 2.0 Intake and Output 08/22/16 08/22/16 08/23/16 15:00 23:00 07:00 Intake Total 1200 ml 850 ml Output Total 800 ml Balance 1200 ml 50 ml Exam GENERAL: Awake, alert, in no distress. HEENT: Normal. Oropharynx clear. NECK: Supple, no JVD, no lymphadenopathy. LUNGS: Clear to auscultation. No crackles, no wheezes. HEART: S1, S2, with regular rhythm, no murmur. ABDOMEN: Soft, tender to palpation in the back. No rebound, no guarding. Bowel sounds are present. EXTREMITIES: No clubbing, cyanosis, or edema. NEUROLOGICAL: Nonfocal, intact. PSYCHIATRIC: Appropriate affect and mood. Results Result Diagram: 08/23/16 0705 08/23/16 0705 Results 24 hrs Laboratory Tests Test 08/22/16 16:31 08/22/16 20:40 08/23/16 07:05 08/23/16 07:10 Bedside Glucose 125 149 106 Alanine Aminotransferase (ALT/SGPT) 18 Albumin 3.1 L Albumin/Globulin Ratio 1.14 Alkaline Phosphatase 63 Anion Gap 22 H Aspartate Amino Transf (AST/SGOT) 15 Basophils # 0.0 Basophils % 0.1 Blood Urea Nitrogen 21 H Calcium Level 9.3 Carbon Dioxide Level 24 Chloride Level 107 Creatine Kinase 94 Creatinine 1.62 H Direct Bilirubin 0.00 Eosinophils # 0.1 Eosinophils % 0.9 Globulin 2.70 Glucose Level 116 Hematocrit 32.0 L Hemoglobin 10.4 L Indirect Bilirubin 0.1 Lymphocytes # 1.6 Lymphocytes % 20.4 Mean Corpuscular Hemoglobin 29.9 Mean Corpuscular Hemoglobin Concent 32.5 Mean Corpuscular Volume 92.0 Mean Platelet Volume 10.0 Monocytes # 1.1 H Monocytes % 13.0 H Neutrophils # 5.2 Neutrophils % 65.0 Nucleated Red Blood Cells # 0.0 Nucleated Red Blood Cells % 0.0 Platelet Count 226 Potassium Level 5.9 H Red Blood Count 3.48 L Red Cell Distribution Width 12.4 Sodium Level 147 H Total Bilirubin 0.1 L Total Protein 5.8 L Uric Acid 5.3 White Blood Count 8.1 Test 08/23/16 11:55 Bedside Glucose 114 Medications Medications Current Medications Sodium Chloride (NS) 1,000 ml @ 75 mls/hr [id number] IV Last administered on 08/23t 12:30; Admin Dose 75 MLS/HR; Start 08/21/16 at 03:45 Ondansetron HCl (Zofran Inj) 4 mg Q6H PRN IV NAUSEA AND/OR VOMITING; Start at 00:00 Nitroglycerin (Nitroglycerin (Sl Tab) 0.4 Mg) 1 tab Q5M PRN SL CHEST PAIN; Start 08/21/16 at 00:00 Acetaminophen (Tylenol Liquid) 650 mg Q6H PRN PO PAIN LEVEL 1-3 OR FEVER; Start 08/21/16 at 00:00 Morphine Sulfate (morphine) 2 mg Q4H PRN IV PAIN LEVEL 7-10; Start 08/21/16 at 00:00 Lorazepam (Ativan) 1 mg Q2H PRN IV ANXIETY; Start 08/21/16 at 00:00 Docusate Sodium (Colace) 100 mg Q12H PRN PO CONSTIPATION; Start 08/21/16 at 00: 00 Famotidine (Pepcid Iv) 20 mg DAILY IV Last administered on 08/23/16 08:36; Admin Dose 20 MG; Start 08/21/16 at 09:00 Heparin Sodium (Porcine) (Heparin (5000 Units/0.5 ml)) 5,000 unit Q8 SC Last administered on 08/23/16 06:09; Admin Dose 5,000 UNIT; Start 08/21/16 at 06:00 Aripiprazole (Abilify) 2 mg DAILY PO Last administered on 08/23/16 08:39; Admin Dose 2 MG; Start 08/21/16 at 09:00 Carvedilol (Coreg) 25 mg BID PO Last administered on 08/23/16 08:39; Admin Dose 25 MG; Start 08/21/16 at 09:00 Cyclosporine (Restasis) 1 drop Q12 BOTH EYES Last administered on 08/23/16 08: 37; Admin Dose 1 DROP; Start 08/21/16 at 09:00 Dutasteride (Avodart) 0.5 mg DAILY PO Last administered on 08/23/16 08:39; Admin Dose 0.5 MG; Start 08/21/16 at 09:00 EZETIMIBE (Zetia) 10 mg HS PO Last administered on 08/22/16 20:53; Admin Dose 10 MG; Start 08/21/16 at 21:00 Gabapentin (Neurontin) 300 mg BID PO Last administered on 08/23/16 08:39; Admin Dose 300 MG; Start 08/21/16 at 09:00 Meclizine HCl (Antivert) 25 mg BID PRN PO DIZZINESS Last administered on 08:44; Admin Dose 25 MG; Start 08/21/16 at 00:00 Memantine (Namenda) 10 mg BID PO Last administered on 08/23/16 08:39; Admin Dose 10 MG; Start 08/21/16 at 09:00 Ranolazine (Ranexa) 500 mg Q12 PO Last administered on 08/23/16 08:39; Admin Dose 500 MG; Start 08/21/16 at 09:00 Salmeterol Xinafoate/ Fluticasone (Advair 250/50 Diskus) 1 inh BID INH Last administered on 08/23/16 08:35; Admin Dose 1 INH; Start 08/21/16 at 09:00 Solifenacin (Vesicare) 5 mg DAILY PO Last administered on 08/23/16 08:39; Admin Dose 5 MG; Start 08/21/16 at 09:00 Zolpidem Tartrate (Ambien) 5 mg HS PO Last administered on 08/22/16 20:54; Admin Dose 5 MG; Start 08/21/16 at 21:00 Pantoprazole (Protonix Tab) 40 mg BID@06,18 PO Last administered on 08/23/16 06:08; Admin Dose 40 MG; Start 08/21/16 at 06:00 Megestrol Acetate (Megace) 20 mg DAILY PO Last administered on 08/23/16 08:39 ; Admin Dose 20 MG; Start 08/21/16 at 09:00 Olopatadine HCl (Patanol 0.1% Oph) 1 drop BID BOTH EYES Last administered on 08:36; Admin Dose 1 DROP; Start 08/21/16 at 14:00 Atorvastatin Calcium (Lipitor) 20 mg DAILY@21 PO Last administered on 20:54; Admin Dose 20 MG; Start 08/21/16 at 21:00 Miscellaneous Information 1 ea NOTE XX ; Start 08/21/16 at 01:00 Glucose (Glutose) 15 gm Q15M PRN PO DECREASED GLUCOSE; Start 08/21/16 at 01:00 Glucose (Glutose) 22.5 gm Q15M PRN PO DECREASED GLUCOSE; Start 08/21/16 at 01: 00 Dextrose (D50w Syringe) 25 ml Q15M PRN IV DECREASED GLUCOSE; Start 08/21/16 at 01:00 Dextrose (D50w Syringe) 50 ml Q15M PRN IV DECREASED GLUCOSE; Start 08/21/16 at 01:00 Glucagon (Glucagen) 1 mg Q15M PRN IM DECREASED GLUCOSE; Start 08/21/16 at 01:00 Glucose (Glutose) 15 gm Q15M PRN BUCCAL DECREASED GLUCOSE; Start 08/21/16 at 01 :00 Nicotine (Nicoderm 14 Mg/ 24hr) 1 patch DAILY TRANSDERM Last administered on 08:35; Admin Dose 1 PATCH; Start 08/21/16 at 12:30 Fish Oil (Fish Oil) 1,000 mg AM PO Last administered on 08/23/16 08:39; Admin Dose 1,000 MG; Start 08/22/16 at 09:00 Guaifenesin/ Dextromethorphan (Robitussin Dm Liquid Cup) 5 ml Q4H PRN PO COUGH Last administered on 08/23/16 08:46; Admin Dose 5 ML; Start 08/21/16 at 17:00 EUGENIA AHUJA MD Aug 23, 2016 13:17
--- NOTE | 2016-08-23 14:04 | CONS ---
Date/Time of Note Date/Time of Note DATE: 08/23/16 TIME: 14:02 Assessment/Plan Assessment/Plan Additional Assessment/Plan 1. Chest pain, assess for acute coronary syndrome with negative troponins x3 at this time./NL EF by echo- R/O MA, doubt ischemia. 3. Dyslipidemia. 4. History of coronary artery disease and possible angina on above medications - will monitor, med rX in place 5. Possible pulmonary embolism by VQ scan.-No CTA done ? secondary to renal failure likely - rx per primary team 6. Ongoing tobacco usage. 7. Chronic obstructive pulmonary disease with borderline urinary tract infection - anti-Bx as needed 8. Renal failure, slowly improving.- better now, avoid nephrotoxic Rx - Dr. Louis Jeong adjusted fluids. 9. Anemia. Consultation Date/Type/Reason Admit Date/Time Aug 22, 2016 at 12:36 Initial Consult Date 08/21/16 Type of Consultation: NEPHROLOGY Referring Provider: DAVID MONTES MD 24 HR Interval Summary Free Text/Dictation No acute change. No focal ectopy on tele - con't Med rx for now. ROS: No fever, no chills, no nausea, no vomiting, no diarrhea/constipation No recent weight changes No chest pain, no PND, no orthopnea No dizziness, blurred vision No thirst, no heat or cold intolerance Exam/Review of Systems Vital Signs Vitals Vital Signs Date Time Temp Pulse Resp B/P Pulse Ox O2 Delivery O2 Flow Rate FiO2 08/23/16 12:40 69 08/23/16 12:14 98.3 20 127/60 98 08/22/16 20:00 Nasal Cannula 2.0 Intake and Output 08/22/16 08/22/16 08/23/16 15:00 23:00 07:00 Intake Total 1200 ml 850 ml Output Total 800 ml Balance 1200 ml 50 ml Exam General: WN/WD/NAD, AOx 2-3 HEENT: Unicetric/atraumatic/EOMI (follow commands) NECK: JVD elevated, no thyromegaly Lymph: no lymphadenopathy HEART: regular with no S3, II/ systolic murmur at apex LUNGS: Coarse sounds ABD: soft, NT, ND, +BS : Intact Neuro: non focal SKIN: chronic changes EXT: trace edema Results Result Diagram: 2/24/17 0705 2/24/17 0705 Results 24 hrs Laboratory Tests Test 08/22/16 16:31 08/22/16 20:40 08/23/16 07:05 08/23/16 07:10 Bedside Glucose 125 149 106 Alanine Aminotransferase (ALT/SGPT) 18 Albumin 3.1 L Albumin/Globulin Ratio 1.14 Alkaline Phosphatase 63 Anion Gap 22 H Aspartate Amino Transf (AST/SGOT) 15 Basophils # 0.0 Basophils % 0.1 Blood Urea Nitrogen 21 H Calcium Level 9.3 Carbon Dioxide Level 24 Chloride Level 107 Creatine Kinase 94 Creatinine 1.62 H Direct Bilirubin 0.00 Eosinophils # 0.1 Eosinophils % 0.9 Globulin 2.70 Glucose Level 116 Hematocrit 32.0 L Hemoglobin 10.4 L Indirect Bilirubin 0.1 Lymphocytes # 1.6 Lymphocytes % 20.4 Mean Corpuscular Hemoglobin 29.9 Mean Corpuscular Hemoglobin Concent 32.5 Mean Corpuscular Volume 92.0 Mean Platelet Volume 10.0 Monocytes # 1.1 H Monocytes % 13.0 H Neutrophils # 5.2 Neutrophils % 65.0 Nucleated Red Blood Cells # 0.0 Nucleated Red Blood Cells % 0.0 Platelet Count 226 Potassium Level 5.9 H Red Blood Count 3.48 L Red Cell Distribution Width 12.4 Sodium Level 147 H Total Bilirubin 0.1 L Total Protein 5.8 L Uric Acid 5.3 White Blood Count 8.1 Test 08/23/16 11:55 Bedside Glucose 114 Medications Medications Current Medications Ondansetron HCl (Zofran Inj) 4 mg Q6H PRN IV NAUSEA AND/OR VOMITING; Start at 00:00 Nitroglycerin (Nitroglycerin (Sl Tab) 0.4 Mg) 1 tab Q5M PRN SL CHEST PAIN; Start 08/21/16 at 00:00 Acetaminophen (Tylenol Liquid) 650 mg Q6H PRN PO PAIN LEVEL 1-3 OR FEVER; Start 08/21/16 at 00:00 Morphine Sulfate (morphine) 2 mg Q4H PRN IV PAIN LEVEL 7-10; Start 08/21/16 at 00:00 Lorazepam (Ativan) 1 mg Q2H PRN IV ANXIETY; Start 08/21/16 at 00:00 Docusate Sodium (Colace) 100 mg Q12H PRN PO CONSTIPATION; Start 08/21/16 at 00: 00 Famotidine (Pepcid Iv) 20 mg DAILY IV Last administered on 08/23/16 08:36; Admin Dose 20 MG; Start 08/21/16 at 09:00 Heparin Sodium (Porcine) (Heparin (5000 Units/0.5 ml)) 5,000 unit Q8 SC Last administered on 08/23/16 06:09; Admin Dose 5,000 UNIT; Start 08/21/16 at 06:00 Aripiprazole (Abilify) 2 mg DAILY PO Last administered on 08/23/16 08:39; Admin Dose 2 MG; Start 08/21/16 at 09:00 Carvedilol (Coreg) 25 mg BID PO Last administered on 08/23/16 08:39; Admin Dose 25 MG; Start 08/21/16 at 09:00 Cyclosporine (Restasis) 1 drop Q12 BOTH EYES Last administered on 08/23/16 08: 37; Admin Dose 1 DROP; Start 08/21/16 at 09:00 Dutasteride (Avodart) 0.5 mg DAILY PO Last administered on 08/23/16 08:39; Admin Dose 0.5 MG; Start 08/21/16 at 09:00 EZETIMIBE (Zetia) 10 mg HS PO Last administered on 08/22/16 20:53; Admin Dose 10 MG; Start 08/21/16 at 21:00 Gabapentin (Neurontin) 300 mg BID PO Last administered on 08/23/16 08:39; Admin Dose 300 MG; Start 08/21/16 at 09:00 Meclizine HCl (Antivert) 25 mg BID PRN PO DIZZINESS Last administered on 08:44; Admin Dose 25 MG; Start 08/21/16 at 00:00 Memantine (Namenda) 10 mg BID PO Last administered on 08/23/16 08:39; Admin Dose 10 MG; Start 08/21/16 at 09:00 Ranolazine (Ranexa) 500 mg Q12 PO Last administered on 08/23/16 08:39; Admin Dose 500 MG; Start 08/21/16 at 09:00 Salmeterol Xinafoate/ Fluticasone (Advair 250/50 Diskus) 1 inh BID INH Last administered on 08/23/16 08:35; Admin Dose 1 INH; Start 08/21/16 at 09:00 Solifenacin (Vesicare) 5 mg DAILY PO Last administered on 08/23/16 08:39; Admin Dose 5 MG; Start 08/21/16 at 09:00 Zolpidem Tartrate (Ambien) 5 mg HS PO Last administered on 08/22/16 20:54; Admin Dose 5 MG; Start 08/21/16 at 21:00 Pantoprazole (Protonix Tab) 40 mg BID@06,18 PO Last administered on 08/23/16 06:08; Admin Dose 40 MG; Start 08/21/16 at 06:00 Megestrol Acetate (Megace) 20 mg DAILY PO Last administered on 08/23/16 08:39 ; Admin Dose 20 MG; Start 08/21/16 at 09:00 Olopatadine HCl (Patanol 0.1% Oph) 1 drop BID BOTH EYES Last administered on 08:36; Admin Dose 1 DROP; Start 08/21/16 at 14:00 Atorvastatin Calcium (Lipitor) 20 mg DAILY@21 PO Last administered on 20:54; Admin Dose 20 MG; Start 08/21/16 at 21:00 Miscellaneous Information 1 ea NOTE XX ; Start 08/21/16 at 01:00 Glucose (Glutose) 15 gm Q15M PRN PO DECREASED GLUCOSE; Start 08/21/16 at 01:00 Glucose (Glutose) 22.5 gm Q15M PRN PO DECREASED GLUCOSE; Start 08/21/16 at 01: 00 Dextrose (D50w Syringe) 25 ml Q15M PRN IV DECREASED GLUCOSE; Start 08/21/16 at 01:00 Dextrose (D50w Syringe) 50 ml Q15M PRN IV DECREASED GLUCOSE; Start 08/21/16 at 01:00 Glucagon (Glucagen) 1 mg Q15M PRN IM DECREASED GLUCOSE; Start 08/21/16 at 01:00 Glucose (Glutose) 15 gm Q15M PRN BUCCAL DECREASED GLUCOSE; Start 08/21/16 at 01 :00 Nicotine (Nicoderm 14 Mg/ 24hr) 1 patch DAILY TRANSDERM Last administered on 08:35; Admin Dose 1 PATCH; Start 08/21/16 at 12:30 Fish Oil (Fish Oil) 1,000 mg AM PO Last administered on 08/23/16 08:39; Admin Dose 1,000 MG; Start 08/22/16 at 09:00 Guaifenesin/ Dextromethorphan 5 ml 5 ml Q4H PRN PO COUGH Last administered on 08:46; Admin Dose 5 ML; Start 08/21/16 at 17:00 Sodium Chloride (1/2 NS) 1,000 ml @ 60 mls/hr [id number] IV ; Start 08/23/16 at 13 :30 Sodium Polystyrene Sulfonate (Kayexalate) 30 gm ONCE ONCE PO ; Start 08/23/16 at 14:00; Stop 08/23/16 at 14:01 CYNDI DEAN MD Aug 23, 2016 14:04
[2016-08-23] MEDS: SOD CHLORIDE 0.45% 1,000 ML IV SCH (14:37)
--- NOTE | 2016-08-23 19:00 | PN ---
Date/Time of Note Date/Time of Note DATE: 08/23/16 TIME: 18:58 Assessment/Plan VTE Prophylaxis VTE Prophylaxis Intervention: heparin Lines/Catheters IV Catheter Type (from Nrs): Peripheral IV Urinary Cath still in place: No Assessment/Plan Assessment/Plan 80 yo male with past medical history of type II DM, essential hypertension, BPH , Hyperlipidemia, Smoking abuse, GERD, CAD, Depression, Vertigo, who presents with chest pain 4 days duration. 1. Chest pain - * ACS ruled out, low likelihood for PE per Pulm 2. Acute renal insufficiency - * patient likely has CKD / Crystals noted in urine 3. Anemia - chronic - 2/2 CKD 4. Type II DM - controlled 5. Essential hypertension - c/w coreg, maintain sbp < 140 for concern of dissection 6. Hyperlipidemia - c/w zetia/statin - 7. CAD - continue with aspirin 8. Depression - continue with abilify 9. Dementia - c/w namenda 10. Hyperkalemia 11. GERD - c/w dexilant 12. Smoking abuse - patient counseled on cessation 13. GI ppx - dexilant 14. DVT ppx - heparin Dispo: family refused stress test Hyperkalemia: treat with Kayexalate. f/u Nephro recs. Subjective 24 Hr Interval Summary Constitutional: no complaints Exam/Review of Systems Vital Signs Vitals Vital Signs Date Time Temp Pulse Resp B/P Pulse Ox O2 Delivery O2 Flow Rate FiO2 08/23/16 16:22 98.1 69 20 113/64 96 08/22/16 20:00 Nasal Cannula 2.0 Intake and Output 08/22/16 08/22/16 08/23/16 15:00 23:00 07:00 Intake Total 1200 ml 850 ml Output Total 800 ml Balance 1200 ml 50 ml Exam GENERAL: The patient is alert, awake. NECK: JVP approximately 8 cm water. CHEST: Fair movement throughout with mildly decreased breath sounds at bases bilaterally. HEART: Regular rate and rhythm. Normal S1, S2, I/ systolic murmur, nondisplaced PMI. ABDOMEN: Positive bowel sounds, soft. EXTREMITIES: No edema, 1+ pulses bilaterally posterior tibial. Results Result Diagram: 08/23/16 0705 08/23/16 0705 Results 24 hrs Laboratory Tests Test 08/22/16 20:40 08/23/16 07:05 08/23/16 07:10 08/23/16 11:55 Bedside Glucose 149 106 114 Alanine Aminotransferase (ALT/SGPT) 18 Albumin 3.1 L Albumin/Globulin Ratio 1.14 Alkaline Phosphatase 63 Anion Gap 22 H Aspartate Amino Transf (AST/SGOT) 15 Basophils # 0.0 Basophils % 0.1 Blood Urea Nitrogen 21 H Calcium Level 9.3 Carbon Dioxide Level 24 Chloride Level 107 Creatine Kinase 94 Creatinine 1.62 H Direct Bilirubin 0.00 Eosinophils # 0.1 Eosinophils % 0.9 Globulin 2.70 Glucose Level 116 Hematocrit 32.0 L Hemoglobin 10.4 L Indirect Bilirubin 0.1 Lymphocytes # 1.6 Lymphocytes % 20.4 Mean Corpuscular Hemoglobin 29.9 Mean Corpuscular Hemoglobin Concent 32.5 Mean Corpuscular Volume 92.0 Mean Platelet Volume 10.0 Monocytes # 1.1 H Monocytes % 13.0 H Neutrophils # 5.2 Neutrophils % 65.0 Nucleated Red Blood Cells # 0.0 Nucleated Red Blood Cells % 0.0 Platelet Count 226 Potassium Level 5.9 H Red Blood Count 3.48 L Red Cell Distribution Width 12.4 Sodium Level 147 H Total Bilirubin 0.1 L Total Protein 5.8 L Uric Acid 5.3 White Blood Count 8.1 Test 08/23/16 17:15 Bedside Glucose 147 Medications Medications Current Medications Ondansetron HCl (Zofran Inj) 4 mg Q6H PRN IV NAUSEA AND/OR VOMITING; Start at 00:00 Nitroglycerin (Nitroglycerin (Sl Tab) 0.4 Mg) 1 tab Q5M PRN SL CHEST PAIN; Start 08/21/16 at 00:00 Acetaminophen (Tylenol Liquid) 650 mg Q6H PRN PO PAIN LEVEL 1-3 OR FEVER; Start 08/21/16 at 00:00 Morphine Sulfate (morphine) 2 mg Q4H PRN IV PAIN LEVEL 7-10; Start 08/21/16 at 00:00 Lorazepam (Ativan) 1 mg Q2H PRN IV ANXIETY; Start 08/21/16 at 00:00 Docusate Sodium (Colace) 100 mg Q12H PRN PO CONSTIPATION; Start 08/21/16 at 00: 00 Heparin Sodium (Porcine) (Heparin (5000 Units/0.5 ml)) 5,000 unit Q8 SC Last administered on 08/23/16t 14:43; Admin Dose 5,000 UNIT; Start 08/21/16 at 06:00 Aripiprazole (Abilify) 2 mg DAILY PO Last administered on 08/23/16 08:39; Admin Dose 2 MG; Start 08/21/16 at 09:00 Carvedilol (Coreg) 25 mg BID PO Last administered on 08/23/16 08:39; Admin Dose 25 MG; Start 08/21/16 at 09:00 Cyclosporine (Restasis) 1 drop Q12 BOTH EYES Last administered on 08/23/16 08: 37; Admin Dose 1 DROP; Start 08/21/16 at 09:00 Dutasteride (Avodart) 0.5 mg DAILY PO Last administered on 08/23/16 08:39; Admin Dose 0.5 MG; Start 08/21/16 at 09:00 EZETIMIBE (Zetia) 10 mg HS PO Last administered on 08/22/16 20:53; Admin Dose 10 MG; Start 08/21/16 at 21:00 Gabapentin (Neurontin) 300 mg BID PO Last administered on 08/23/16 08:39; Admin Dose 300 MG; Start 08/21/16 at 09:00 Meclizine HCl (Antivert) 25 mg BID PRN PO DIZZINESS Last administered on 08:44; Admin Dose 25 MG; Start 08/21/16 at 00:00 Memantine (Namenda) 10 mg BID PO Last administered on 08/23/16 08:39; Admin Dose 10 MG; Start 08/21/16 at 09:00 Ranolazine (Ranexa) 500 mg Q12 PO Last administered on 08/23/16 08:39; Admin Dose 500 MG; Start 08/21/16 at 09:00 Salmeterol Xinafoate/ Fluticasone (Advair 250/50 Diskus) 1 inh BID INH Last administered on 08/23/16 08:35; Admin Dose 1 INH; Start 08/21/16 at 09:00 Solifenacin (Vesicare) 5 mg DAILY PO Last administered on 08/23/16 08:39; Admin Dose 5 MG; Start 08/21/16 at 09:00 Zolpidem Tartrate (Ambien) 5 mg HS PO Last administered on 08/22/16 20:54; Admin Dose 5 MG; Start 08/21/16 at 21:00 Pantoprazole (Protonix Tab) 40 mg BID@06,18 PO Last administered on 08/23/16 17:22; Admin Dose 40 MG; Start 08/21/16 at 06:00 Megestrol Acetate (Megace) 20 mg DAILY PO Last administered on 08/23/16 08:39 ; Admin Dose 20 MG; Start 08/21/16 at 09:00 Olopatadine HCl (Patanol 0.1% Oph) 1 drop BID BOTH EYES Last administered on 08:36; Admin Dose 1 DROP; Start 08/21/16 at 14:00 Atorvastatin Calcium (Lipitor) 20 mg DAILY@21 PO Last administered on 20:54; Admin Dose 20 MG; Start 08/21/16 at 21:00 Miscellaneous Information 1 ea NOTE XX ; Start 08/21/16 at 01:00 Glucose (Glutose) 15 gm Q15M PRN PO DECREASED GLUCOSE; Start 08/21/16 at 01:00 Glucose (Glutose) 22.5 gm Q15M PRN PO DECREASED GLUCOSE; Start 08/21/16 at 01: 00 Dextrose (D50w Syringe) 25 ml Q15M PRN IV DECREASED GLUCOSE; Start 08/21/16 at 01:00 Dextrose (D50w Syringe) 50 ml Q15M PRN IV DECREASED GLUCOSE; Start 08/21/16 at 01:00 Glucagon (Glucagen) 1 mg Q15M PRN IM DECREASED GLUCOSE; Start 08/21/16 at 01:00 Glucose (Glutose) 15 gm Q15M PRN BUCCAL DECREASED GLUCOSE; Start 08/21/16 at 01 :00 Nicotine (Nicoderm 14 Mg/ 24hr) 1 patch DAILY TRANSDERM Last administered on 08:35; Admin Dose 1 PATCH; Start 08/21/16 at 12:30 Fish Oil (Fish Oil) 1,000 mg AM PO Last administered on 08/23/16 08:39; Admin Dose 1,000 MG; Start 08/22/16 at 09:00 Guaifenesin/ Dextromethorphan 5 ml 5 ml Q4H PRN PO COUGH Last administered on 08:46; Admin Dose 5 ML; Start 08/21/16 at 17:00 Sodium Chloride (1/2 NS) 1,000 ml @ 60 mls/hr [id number] IV Last administered on 08/23/16t 14:37; Admin Dose 60 MLS/HR; Start 08/23/16 at 13:30 KEVIN CASTANON Aug 23, 2016 19:00
[2016-08-23] MEDS: EZETIMIBE 10 MG TAB PO SCH (21:35)
[2016-08-23] MEDS: ATORVASTATIN 20 MG TAB PO SCH (21:35)
[2016-08-23] MEDS: ZOLPIDEM 5 MG TAB PO SCH (21:36)
[2016-08-24] VITALS (11 sets, daily range): BP systolic 106–150; BP diastolic 55–70; PULSE 65–72; RESP 16–20
[2016-08-24] MEDS: PANTOPRAZOLE (EC) 40 MG TAB PO SCH ×2 (06:00→17:20)
[2016-08-24] MEDS: HEPARIN 5,000 UNIT/0.5 ML SYG SC SCH ×3 (06:00→21:49)
[2016-08-24] MEDS: SOD CHLORIDE 0.45% 1,000 ML IV SCH (06:10)
[2016-08-24 07:48] LABS: ADD SCAN DIFF NO
[2016-08-24 07:51] LABS: BASOPHILS % 0.1 % (0.0-2.0); EOSINOPHILS # 0.2 10^3/ul (0.0-0.5); EOSINOPHILS % 2.8 % (0.0-7.0); HEMATOCRIT 30.9 % (42.0-52.0); HEMOGLOBIN 10.3 g/dl (14.0-18.0); LYMPHOCYTES # 1.8 10^3/ul (0.8-2.9); LYMPHOCYTES % 24.7 % (15.0-51.0); MEAN CORPUSCULAR HEMOGLOBIN 30.1 pg (29.0-33.0); MEAN CORPUSCULAR HGB CONC 33.3 g/dl (32.0-37.0); MEAN CORPUSCULAR VOLUME 90.4 fl (82.0-101.0); MEAN PLATELET VOLUME 10.3 fl (7.4-10.4); MONOCYTE # 0.8 10^3/ul (0.3-0.9); MONOCYTES % 11.6 % (0.0-11.0); NEUTROPHIL # 4.3 10^3/ul (1.6-7.5); NEUTROPHILS % 59.7 % (39.0-77.0); PLATELET COUNT 269 10^3/UL (140-415); RED BLOOD COUNT 3.42 10^6/ul (4.70-6.10); RED CELL DISTRIBUTION WIDTH 12.4 % (11.5-14.5); WHITE BLOOD COUNT 7.2 10^3/ul (4.8-10.8)
[2016-08-24 07:59] LABS: ALBUMIN 3.3 g/dl (3.3-4.9)
[2016-08-24 08:00] LABS: POTASSIUM 4.2 mmol/L (3.5-5.1)
[2016-08-24] MEDS: INSULIN ASPART [NOVOLOG] 3 ML PEN SC SCH ×4 (08:00→21:00)
[2016-08-24 08:02] LABS: BILIRUBIN,INDIRECT 0.1 mg/dl (0-1.1); BILIRUBIN,TOTAL 0.1 mg/dl (0.2-1.3); CREATININE 1.71 mg/dl (0.61-1.24)
[2016-08-24 08:03] LABS: ALBUMIN/GLOBULIN RATIO 1.13; CALCIUM 9.2 mg/dl (8.4-10.2); TOTAL PROTEIN 6.2 g/dl (6.1-8.1)
[2016-08-24] MEDS: OLOPATADINE 0.1% 5 ML OPH BOTH EYES SCH ×2 (08:24→21:32)
[2016-08-24] MEDS: NICOTINE (14 MG/24 HR) PATCH TRANSDERM SCH (08:24)
[2016-08-24] MEDS: DUTASTERIDE 0.5 MG CAP PO SCH (08:25)
[2016-08-24] MEDS: SALMETEROL/FLUTICASONE 250/50 INHA INH SCH ×2 (08:25→21:33)
[2016-08-24] MEDS: SOLIFENACIN 5 MG TAB PO SCH (08:25)
[2016-08-24] MEDS: RANOLAZINE (SR) 500 MG TAB PO SCH ×2 (08:25→21:36)
[2016-08-24] MEDS: CREON (24K-76K-120K) 1 CAP PO SCH ×3 (08:25→17:20)
[2016-08-24] MEDS: MEMANTINE 10 MG TAB PO SCH ×2 (08:25→19:46)
[2016-08-24] MEDS: FISH OIL 1,000 MG CAP PO SCH (08:25)
[2016-08-24] MEDS: GABAPENTIN 300 MG CAP PO SCH ×2 (08:25→21:32)
[2016-08-24] MEDS: MEGESTROL 40 MG TAB PO SCH (08:26)
[2016-08-24] MEDS: CYCLOSPORINE 0.05% OPH DROPERETTE BOTH EYES SCH ×2 (08:27→21:00)
[2016-08-24] MEDS: ARIPIPRAZOLE 2 MG TAB PO SCH (08:28)
--- NOTE | 2016-08-24 13:00 | CONS ---
Date/Time of Note Date/Time of Note DATE: 08/24/16 TIME: 12:59 Assessment/Plan Assessment/Plan Additional Assessment/Plan 1. Acute kidney injury versus acute kidney injury on chronic kidney disease stage III secondary to prerenal azotemia along with bilateral nephrolithiasis causing obstruction. 2. Hematuria with trace proteinuria, likely secondary to chronic kidney disease and secondary to kidney stone. 3. History of chronic kidney disease, unknown stage, secondary to diabetic nephropathy with acquired cysts bilaterally on the CT scan. 4. History of coronary artery disease, nonobstructive. 6. History of hypertension. 7. Hyperlipidemia 8. History of diabetes mellitus. PLAN: kayexalate for hyperkalemia switch IVF to 1/2 NS at 50 cc/ hr will monitor Na and creatinine Will follow up Consultation Date/Type/Reason Admit Date/Time Aug 22, 2016 at 12:36 Initial Consult Date 08/22/16 Type of Consultation: NEPHROLOGY Reason for Consultation K normal Cr 1.65, Pt stable Referring Provider: DAVID MONTES MD Exam/Review of Systems Vital Signs Vitals Vital Signs Date Time Temp Pulse Resp B/P Pulse Ox O2 Delivery O2 Flow Rate FiO2 08/24/16 12:19 68 08/24/16 11:45 98.1 17 106/55 94 08/22/16 20:00 Nasal Cannula 2.0 Intake and Output 08/23/16 08/23/16 08/24/16 15:00 23:00 07:00 Intake Total 800 ml Balance 800 ml Exam GENERAL: Awake, alert, in no distress. HEENT: Normal. Oropharynx clear. NECK: Supple, no JVD, no lymphadenopathy. LUNGS: Clear to auscultation. No crackles, no wheezes. HEART: S1, S2, with regular rhythm, no murmur. ABDOMEN: Soft, tender to palpation in the back. No rebound, no guarding. Bowel sounds are present. EXTREMITIES: No clubbing, cyanosis, or edema. NEUROLOGICAL: Nonfocal, intact. PSYCHIATRIC: Appropriate affect and mood. Results Result Diagram: 08/24/16 0640 08/24/16 0640 Results 24 hrs Laboratory Tests Test 08/23/16 17:15 08/23/16 20:25 08/24/16 06:40 08/24/16 08:08 Bedside Glucose 147 132 119 Alanine Aminotransferase (ALT/SGPT) 18 Albumin 3.3 Albumin/Globulin Ratio 1.13 Alkaline Phosphatase 60 Anion Gap 18 H Aspartate Amino Transf (AST/SGOT) 16 Basophils # 0.0 Basophils % 0.1 Blood Urea Nitrogen 20 Calcium Level 9.2 Carbon Dioxide Level 26 Chloride Level 106 Creatinine 1.71 H Direct Bilirubin 0.00 Eosinophils # 0.2 Eosinophils % 2.8 Globulin 2.90 Glucose Level 114 Hematocrit 30.9 L Hemoglobin 10.3 L Indirect Bilirubin 0.1 Lymphocytes # 1.8 Lymphocytes % 24.7 Mean Corpuscular Hemoglobin 30.1 Mean Corpuscular Hemoglobin Concent 33.3 Mean Corpuscular Volume 90.4 Mean Platelet Volume 10.3 Monocytes # 0.8 Monocytes % 11.6 H Neutrophils # 4.3 Neutrophils % 59.7 Nucleated Red Blood Cells # 0.0 Nucleated Red Blood Cells % 0.0 Platelet Count 269 Potassium Level 4.2 Red Blood Count 3.42 L Red Cell Distribution Width 12.4 Sodium Level 146 H Total Bilirubin 0.1 L Total Protein 6.2 White Blood Count 7.2 Test 08/24/16 11:18 Bedside Glucose 167 Medications Medications Current Medications Ondansetron HCl (Zofran Inj) 4 mg Q6H PRN IV NAUSEA AND/OR VOMITING; Start at 00:00 Nitroglycerin (Nitroglycerin (Sl Tab) 0.4 Mg) 1 tab Q5M PRN SL CHEST PAIN; Start 08/21/16 at 00:00 Acetaminophen (Tylenol Liquid) 650 mg Q6H PRN PO PAIN LEVEL 1-3 OR FEVER; Start 08/21/16 at 00:00 Morphine Sulfate (morphine) 2 mg Q4H PRN IV PAIN LEVEL 7-10; Start 08/21/16 at 00:00 Lorazepam (Ativan) 1 mg Q2H PRN IV ANXIETY; Start 08/21/16 at 00:00 Docusate Sodium (Colace) 100 mg Q12H PRN PO CONSTIPATION; Start 08/21/16 at 00: 00 Heparin Sodium (Porcine) (Heparin (5000 Units/0.5 ml)) 5,000 unit Q8 SC Last administered on 08/23/16 22:33; Admin Dose 5,000 UNIT; Start 08/21/16 at 06:00 Aripiprazole (Abilify) 2 mg DAILY PO Last administered on 08/24/16 08:28; Admin Dose 2 MG; Start 08/21/16 at 09:00 Carvedilol (Coreg) 25 mg BID PO Last administered on 08/24/16 08:26; Admin Dose 25 MG; Start 08/21/16 at 09:00 Cyclosporine (Restasis) 1 drop Q12 BOTH EYES Last administered on 08/24/16 08: 27; Admin Dose 1 DROP; Start 08/21/16 at 09:00 Dutasteride (Avodart) 0.5 mg DAILY PO Last administered on 08/24/16 08:25; Admin Dose 0.5 MG; Start 08/21/16 at 09:00 EZETIMIBE (Zetia) 10 mg HS PO Last administered on 08/23/16 21:35; Admin Dose 10 MG; Start 08/21/16 at 21:00 Gabapentin (Neurontin) 300 mg BID PO Last administered on 08/24/16 08:25; Admin Dose 300 MG; Start 08/21/16 at 09:00 Meclizine HCl (Antivert) 25 mg BID PRN PO DIZZINESS Last administered on 08:44; Admin Dose 25 MG; Start 08/21/16 at 00:00 Memantine (Namenda) 10 mg BID PO Last administered on 08/24/16 08:25; Admin Dose 10 MG; Start 08/21/16 at 09:00 Ranolazine (Ranexa) 500 mg Q12 PO Last administered on 08/24/16 08:25; Admin Dose 500 MG; Start 08/21/16 at 09:00 Salmeterol Xinafoate/ Fluticasone (Advair 250/50 Diskus) 1 inh BID INH Last administered on 08/24/16 08:25; Admin Dose 1 INH; Start 08/21/16 at 09:00 Solifenacin (Vesicare) 5 mg DAILY PO Last administered on 08/24/16 08:25; Admin Dose 5 MG; Start 08/21/16 at 09:00 Zolpidem Tartrate (Ambien) 5 mg HS PO Last administered on 08/23/16 21:36; Admin Dose 5 MG; Start 08/21/16 at 21:00 Pantoprazole (Protonix Tab) 40 mg BID@18 PO Last administered on 08/23/16 17:22; Admin Dose 40 MG; Start 08/21/16 at 06:00 Megestrol Acetate (Megace) 20 mg DAILY PO Last administered on 08/24/16 08:26 ; Admin Dose 20 MG; Start 08/21/16 at 09:00 Olopatadine HCl (Patanol 0.1% Oph) 1 drop BID BOTH EYES Last administered on 08:24; Admin Dose 1 DROP; Start 08/21/16 at 14:00 Atorvastatin Calcium (Lipitor) 20 mg DAILY@21 PO Last administered on 21:35; Admin Dose 20 MG; Start 08/21/16 at 21:00 Miscellaneous Information 1 ea NOTE XX ; Start 08/21/16 at 01:00 Glucose (Glutose) 15 gm Q15M PRN PO DECREASED GLUCOSE; Start 08/21/16 at 01:00 Glucose (Glutose) 22.5 gm Q15M PRN PO DECREASED GLUCOSE; Start 08/21/16 at 01: 00 Dextrose (D50w Syringe) 25 ml Q15M PRN IV DECREASED GLUCOSE; Start 08/21/16 at 01:00 Dextrose (D50w Syringe) 50 ml Q15M PRN IV DECREASED GLUCOSE; Start 08/21/16 at 01:00 Glucagon (Glucagen) 1 mg Q15M PRN IM DECREASED GLUCOSE; Start 08/21/16 at 01:00 Glucose (Glutose) 15 gm Q15M PRN BUCCAL DECREASED GLUCOSE; Start 08/21/16 at 01 :00 Nicotine (Nicoderm 14 Mg/ 24hr) 1 patch DAILY TRANSDERM Last administered on 08:24; Admin Dose 1 PATCH; Start 08/21/16 at 12:30 Fish Oil (Fish Oil) 1,000 mg AM PO Last administered on 08/24/16 08:25; Admin Dose 1,000 MG; Start 08/22/16 at 09:00 Guaifenesin/ Dextromethorphan 5 ml 5 ml Q4H PRN PO COUGH Last administered on 22:32; Admin Dose 5 ML; Start 08/21/16 at 17:00 Sodium Chloride (1/2 NS) 1,000 ml @ 60 mls/hr [id number] IV Last administered on 08/23/16 14:37; Admin Dose 60 MLS/HR; Start 08/23/16 at 13:30 EUGENIA AHUJA MD Aug 24, 2016 12:59
--- NOTE | 2016-08-24 15:23 | PN ---
Date/Time of Note Date/Time of Note DATE: 08/24/16 TIME: 15:21 Assessment/Plan VTE Prophylaxis VTE Prophylaxis Intervention: heparin Lines/Catheters IV C[facility]ter Type [facility]from [facility] Urinary Cath still in place: No Assessment/Plan Chief Complaint/Hosp Course Assessment/Plan 80 yo male with past medical history of type II DM, essential hypertension, BPH , Hyperlipidemia, Smoking abuse, GERD, CAD, Depression, Vertigo, who presents with chest pain 4 days duration. 1. Chest pain - * ACS ruled out, low likelihood for PE per Pulm * Patient has refused stress test 2. Acute renal insufficiency - * patient likely has CKD / Crystals noted in urine * Nephrology has been consulted, follow-up renal panel in a.m. 3. Anemia - chronic - 2/2 CKD 4. Type II DM - controlled 5. Essential hypertension - c/w coreg, maintain sbp < 140 for concern of dissection 6. Hyperlipidemia - c/w zetia/statin - 7. CAD - continue with aspirin 8. Depression - continue with abilify 9. Dementia - c/w namenda 10. Hyperkalemia 11. GERD - c/w dexilant 12. Smoking abuse - patient counseled on cessation 13. GI ppx - dexilant 14. DVT ppx - heparin Dispo: family refused stress test Hyperkalemia: treat with Kayexalate. f/u Nephro recs. Problems: Subjective 24 Hr Interval Summary Free Text/Dictation Patient is adamant that he wants to be discharged home I have explained in detail that patient should be evaluated for renal panel tomorrow He denies of any chest pain or shortness of breath Exam/Review of Systems Vital Signs Vitals Vital Signs Date Time Temp Pulse Resp B/P Pulse Ox O2 Delivery O2 Flow Rate FiO2 08/24/16 12:19 68 08/24/16 11:45 98.1 17 106/55 94 08/22/16 20:00 Nasal Cannula 2.0 Intake and Output 08/23/16 08/23/16 08/24/16 15:00 23:00 07:00 Intake Total 800 ml Balance 800 ml Exam General: The patient is well-developed, Not in acute distress. HEENT: Atraumatic, normocephalic. The pupils are equal and round . Neck: Supple with full range of motion. Chest: Normal expansion of the thorax during inspiration Lungs: Clear to auscultation bilaterally Heart: Normal S1-S2, Regular rhythm and rate. Abdomen: Soft , nontender, nondistended , bowel sounds are present. Extremities: Normal to inspection, no edema no cyanosis Neurologic: Normal mental status,The patient is awake, alert and oriented . Results Result Diagram: 08/24/16 0640 08/24/16 0640 Results 24 hrs Laboratory Tests Test 08/23/16 17:15 08/23/16 20:25 08/24/16 06:40 08/24/16 08:08 Bedside Glucose 147 132 119 Alanine Aminotransferase (ALT/SGPT) 18 Albumin 3.3 Albumin/Globulin Ratio 1.13 Alkaline Phosphatase 60 Anion Gap 18 H Aspartate Amino Transf (AST/SGOT) 16 Basophils # 0.0 Basophils % 0.1 Blood Urea Nitrogen 20 Calcium Level 9.2 Carbon Dioxide Level 26 Chloride Level 106 Creatinine 1.71 H Direct Bilirubin 0.00 Eosinophils # 0.2 Eosinophils % 2.8 Globulin 2.90 Glucose Level 114 Hematocrit 30.9 L Hemoglobin 10.3 L Indirect Bilirubin 0.1 Lymphocytes # 1.8 Lymphocytes % 24.7 Mean Corpuscular Hemoglobin 30.1 Mean Corpuscular Hemoglobin Concent 33.3 Mean Corpuscular Volume 90.4 Mean Platelet Volume 10.3 Monocytes # 0.8 Monocytes % 11.6 H Neutrophils # 4.3 Neutrophils % 59.7 Nucleated Red Blood Cells # 0.0 Nucleated Red Blood Cells % 0.0 Platelet Count 269 Potassium Level 4.2 Red Blood Count 3.42 L Red Cell Distribution Width 12.4 Sodium Level 146 H Total Bilirubin 0.1 L Total Protein 6.2 White Blood Count 7.2 Test 08/24/16 11:18 Bedside Glucose 167 Medications Medications Current Medications Ondansetron HCl (Zofran Inj) 4 mg Q6H PRN IV NAUSEA AND/OR VOMITING; Start at 00:00 Nitroglycerin (Nitroglycerin (Sl Tab) 0.4 Mg) 1 tab Q5M PRN SL CHEST PAIN; Start 08/21/16 at 00:00 Acetaminophen (Tylenol Liquid) 650 mg Q6H PRN PO PAIN LEVEL 1-3 OR FEVER; Start 08/21/16 at 00:00 Morphine Sulfate (morphine) 2 mg Q4H PRN IV PAIN LEVEL 7-10; Start 08/21/16 at 00:00 Lorazepam (Ativan) 1 mg Q2H PRN IV ANXIETY; Start 08/21/16 at 00:00 Docusate Sodium (Colace) 100 mg Q12H PRN PO CONSTIPATION; Start 08/21/16 at 00: 00 Heparin Sodium (Porcine) (Heparin (5000 Units/0.5 ml)) 5,000 unit Q8 SC Last administered on 08/23/16 22:33; Admin Dose 5,000 UNIT; Start 08/21/16 at 06:00 Aripiprazole (Abilify) 2 mg DAILY PO Last administered on 08/24/16 08:28; Admin Dose 2 MG; Start 08/21/16 at 09:00 Carvedilol (Coreg) 25 mg BID PO Last administered on 08/24/16 08:26; Admin Dose 25 MG; Start 08/21/16 at 09:00 Cyclosporine (Restasis) 1 drop Q12 BOTH EYES Last administered on 08/24/16 08: 27; Admin Dose 1 DROP; Start 08/21/16 at 09:00 Dutasteride (Avodart) 0.5 mg DAILY PO Last administered on 08/24/16 08:25; Admin Dose 0.5 MG; Start 08/21/16 at 09:00 EZETIMIBE (Zetia) 10 mg HS PO Last administered on 08/23/16 21:35; Admin Dose 10 MG; Start 08/21/16 at 21:00 Gabapentin (Neurontin) 300 mg BID PO Last administered on 08/24/16 08:25; Admin Dose 300 MG; Start 08/21/16 at 09:00 Meclizine HCl (Antivert) 25 mg BID PRN PO DIZZINESS Last administered on 08:44; Admin Dose 25 MG; Start 08/21/16 at 00:00 Memantine (Namenda) 10 mg BID PO Last administered on 08/24/16 08:25; Admin Dose 10 MG; Start 08/21/16 at 09:00 Ranolazine (Ranexa) 500 mg Q12 PO Last administered on 08/24/16 08:25; Admin Dose 500 MG; Start 08/21/16 at 09:00 Salmeterol Xinafoate/ Fluticasone (Advair 250/50 Diskus) 1 inh BID INH Last administered on 08/24/16 08:25; Admin Dose 1 INH; Start 08/21/16 at 09:00 Solifenacin (Vesicare) 5 mg DAILY PO Last administered on 08/24/16 08:25; Admin Dose 5 MG; Start 08/21/16 at 09:00 Zolpidem Tartrate (Ambien) 5 mg HS PO Last administered on 08/23/16 21:36; Admin Dose 5 MG; Start 08/21/16 at 21:00 Pantoprazole (Protonix Tab) 40 mg BID@06,18 PO Last administered on 08/23/16 17:22; Admin Dose 40 MG; Start 08/21/16 at 06:00 Megestrol Acetate (Megace) 20 mg DAILY PO Last administered on 08/24/16 08:26 ; Admin Dose 20 MG; Start 08/21/16 at 09:00 Olopatadine HCl (Patanol 0.1% Oph) 1 drop BID BOTH EYES Last administered on 08:24; Admin Dose 1 DROP; Start 08/21/16 at 14:00 Atorvastatin Calcium (Lipitor) 20 mg DAILY@21 PO Last administered on 21:35; Admin Dose 20 MG; Start 08/21/16 at 21:00 Miscellaneous Information 1 ea NOTE XX ; Start 08/21/16 at 01:00 Glucose (Glutose) 15 gm Q15M PRN PO DECREASED GLUCOSE; Start 08/21/16 at 01:00 Glucose (Glutose) 22.5 gm Q15M PRN PO DECREASED GLUCOSE; Start 08/21/16 at 01: 00 Dextrose (D50w Syringe) 25 ml Q15M PRN IV DECREASED GLUCOSE; Start 08/21/16 at 01:00 Dextrose (D50w Syringe) 50 ml Q15M PRN IV DECREASED GLUCOSE; Start 08/21/16 at 01:00 Glucagon (Glucagen) 1 mg Q15M PRN IM DECREASED GLUCOSE; Start 08/21/16 at 01:00 Glucose (Glutose) 15 gm Q15M PRN BUCCAL DECREASED GLUCOSE; Start 08/21/16 at 01 :00 Nicotine (Nicoderm 14 Mg/ 24hr) 1 patch DAILY TRANSDERM Last administered on 08:24; Admin Dose 1 PATCH; Start 08/21/16 at 12:30 Fish Oil (Fish Oil) 1,000 mg AM PO Last administered on 08/24/16 08:25; Admin Dose 1,000 MG; Start 08/22/16 at 09:00 Guaifenesin/ Dextromethorphan (Robitussin Dm Liquid Cup) 5 ml Q4H PRN PO COUGH Last administered on 08/23/16 22:32; Admin Dose 5 ML; Start 08/21/16 at 17:00 DAVID MONTES MD Aug 24, 2016 15:23
--- NOTE | 2016-08-24 16:01 | CONS ---
Date/Time of Note Date/Time of Note DATE: 08/24/16 TIME: 15:59 Assessment/Plan Assessment/Plan Additional Assessment/Plan 1. Chest pain, assess for acute coronary syndrome with negative troponins x3 at this time./NL EF by echo- R/O UT, doubt ischemia. PT REFUSED STRES STEST. MED RX advised. 3. Dyslipidemia. 4. History of coronary artery disease and possible angina on above medications - will monitor, med rX in place - med Rx - no active CP now. 5. Possible pulmonary embolism by VQ scan.-No CTA done ? secondary to renal failure likely - rx per primary team 6. Ongoing tobacco usage. 7. Chronic obstructive pulmonary disease with borderline urinary tract infection - anti-Bx as needed - stable. 8. Renal failure, slowly improving.- better now, avoid nephrotoxic Rx - Dr. Louis Jeong adjusted fluids. 9. Anemia- H/H stable - no active bleed noted. Consultation Date/Type/Reason Admit Date/Time Aug 22, 2016 at 12:36 Initial Consult Date 08/21/16 Type of Consultation: NEPHROLOGY Referring Provider: DAVID MONTES MD 24 HR Interval Summary Free Text/Dictation NO acute events - no significant ectopy on tele - will Rx as needed. Refused Stress test. ROS: No fever, no chills, no nausea, no vomiting, no diarrhea/constipation No recent weight changes No chest pain, no PND, no orthopnea No dizziness, blurred vision No thirst, no heat or cold intolerance + SOB, chronic Exam/Review of Systems Vital Signs Vitals Vital Signs Date Time Temp Pulse Resp B/P Pulse Ox O2 Delivery O2 Flow Rate FiO2 08/24/16 15:49 98.0 69 18 133/65 96 08/22/16 20:00 Nasal Cannula 2.0 Intake and Output 08/23/16 08/23/16 08/24/16 15:00 23:00 07:00 Intake Total 800 ml Balance 800 ml Exam General: WN/WD/NAD, AOx 2 HEENT: Unicetric/atraumatic/EOMI (follow commands) NECK: JVD elevated, no thyromegaly Lymph: no lymphadenopathy HEART: regular with no S3, II/ systolic murmur at apex LUNGS: Coarse sounds, occ wheezing ABD: soft, NT, ND, +BS : Intact Neuro: non focal SKIN: chronic changes EXT: trace edema Results Result Diagram: 08/24/16 0640 08/24/16 0640 Results 24 hrs Laboratory Tests Test 08/23/16 17:15 08/23/16 20:25 08/24/16 06:40 08/24/16 08:08 Bedside Glucose 147 132 119 Alanine Aminotransferase (ALT/SGPT) 18 Albumin 3.3 Albumin/Globulin Ratio 1.13 Alkaline Phosphatase 60 Anion Gap 18 H Aspartate Amino Transf (AST/SGOT) 16 Basophils # 0.0 Basophils % 0.1 Blood Urea Nitrogen 20 Calcium Level 9.2 Carbon Dioxide Level 26 Chloride Level 106 Creatinine 1.71 H Direct Bilirubin 0.00 Eosinophils # 0.2 Eosinophils % 2.8 Globulin 2.90 Glucose Level 114 Hematocrit 30.9 L Hemoglobin 10.3 L Indirect Bilirubin 0.1 Lymphocytes # 1.8 Lymphocytes % 24.7 Mean Corpuscular Hemoglobin 30.1 Mean Corpuscular Hemoglobin Concent 33.3 Mean Corpuscular Volume 90.4 Mean Platelet Volume 10.3 Monocytes # 0.8 Monocytes % 11.6 H Neutrophils # 4.3 Neutrophils % 59.7 Nucleated Red Blood Cells # 0.0 Nucleated Red Blood Cells % 0.0 Platelet Count 269 Potassium Level 4.2 Red Blood Count 3.42 L Red Cell Distribution Width 12.4 Sodium Level 146 H Total Bilirubin 0.1 L Total Protein 6.2 White Blood Count 7.2 Test 08/24/16 11:18 Bedside Glucose 167 Medications Medications Current Medications Ondansetron HCl (Zofran Inj) 4 mg Q6H PRN IV NAUSEA AND/OR VOMITING; Start at 00:00 Nitroglycerin (Nitroglycerin (Sl Tab) 0.4 Mg) 1 tab Q5M PRN SL CHEST PAIN; Start 08/21/16 at 00:00 Acetaminophen (Tylenol Liquid) 650 mg Q6H PRN PO PAIN LEVEL 1-3 OR FEVER; Start 08/21/16 at 00:00 Morphine Sulfate (morphine) 2 mg Q4H PRN IV PAIN LEVEL 7-10; Start 08/21/16 at 00:00 Lorazepam (Ativan) 1 mg Q2H PRN IV ANXIETY; Start 08/21/16 at 00:00 Docusate Sodium (Colace) 100 mg Q12H PRN PO CONSTIPATION; Start 08/21/16 at 00: 00 Heparin Sodium (Porcine) (Heparin (5000 Units/0.5 ml)) 5,000 unit Q8 SC Last administered on 08/23/16 22:33; Admin Dose 5,000 UNIT; Start 08/21/16 at 06:00 Aripiprazole (Abilify) 2 mg DAILY PO Last administered on 08/24/16 08:28; Admin Dose 2 MG; Start 08/21/16 at 09:00 Carvedilol (Coreg) 25 mg BID PO Last administered on 08/24/16 08:26; Admin Dose 25 MG; Start 08/21/16 at 09:00 Cyclosporine (Restasis) 1 drop Q12 BOTH EYES Last administered on 08/24/16 08: 27; Admin Dose 1 DROP; Start 08/21/16 at 09:00 Dutasteride (Avodart) 0.5 mg DAILY PO Last administered on 08/24/16 08:25; Admin Dose 0.5 MG; Start 08/21/16 at 09:00 EZETIMIBE (Zetia) 10 mg HS PO Last administered on 08/23/16 21:35; Admin Dose 10 MG; Start 08/21/16 at 21:00 Gabapentin (Neurontin) 300 mg BID PO Last administered on 08/24/16 08:25; Admin Dose 300 MG; Start 08/21/16 at 09:00 Meclizine HCl (Antivert) 25 mg BID PRN PO DIZZINESS Last administered on 08:44; Admin Dose 25 MG; Start 08/21/16 at 00:00 Memantine (Namenda) 10 mg BID PO Last administered on 08/24/16 08:25; Admin Dose 10 MG; Start 08/21/16 at 09:00 Ranolazine (Ranexa) 500 mg Q12 PO Last administered on 08/24/16 08:25; Admin Dose 500 MG; Start 08/21/16 at 09:00 Salmeterol Xinafoate/ Fluticasone (Advair 250/50 Diskus) 1 inh BID INH Last administered on 08/24/16 08:25; Admin Dose 1 INH; Start 08/21/16 at 09:00 Solifenacin (Vesicare) 5 mg DAILY PO Last administered on 08/24/16 08:25; Admin Dose 5 MG; Start 08/21/16 at 09:00 Zolpidem Tartrate (Ambien) 5 mg HS PO Last administered on 08/23/16 21:36; Admin Dose 5 MG; Start 08/21/16 at 21:00 Pantoprazole (Protonix Tab) 40 mg BID@06,18 PO Last administered on 08/23/16 17:22; Admin Dose 40 MG; Start 08/21/16 at 06:00 Megestrol Acetate (Megace) 20 mg DAILY PO Last administered on 08/24/16 08:26 ; Admin Dose 20 MG; Start 08/21/16 at 09:00 Olopatadine HCl (Patanol 0.1% Oph) 1 drop BID BOTH EYES Last administered on 08:24; Admin Dose 1 DROP; Start 08/21/16 at 14:00 Atorvastatin Calcium (Lipitor) 20 mg DAILY@21 PO Last administered on 21:35; Admin Dose 20 MG; Start 08/21/16 at 21:00 Miscellaneous Information 1 ea NOTE XX ; Start 08/21/16 at 01:00 Glucose (Glutose) 15 gm Q15M PRN PO DECREASED GLUCOSE; Start 08/21/16 at 01:00 Glucose (Glutose) 22.5 gm Q15M PRN PO DECREASED GLUCOSE; Start 08/21/16 at 01: 00 Dextrose (D50w Syringe) 25 ml Q15M PRN IV DECREASED GLUCOSE; Start 08/21/16 at 01:00 Dextrose (D50w Syringe) 50 ml Q15M PRN IV DECREASED GLUCOSE; Start 08/21/16 at 01:00 Glucagon (Glucagen) 1 mg Q15M PRN IM DECREASED GLUCOSE; Start 08/21/16 at 01:00 Glucose (Glutose) 15 gm Q15M PRN BUCCAL DECREASED GLUCOSE; Start 08/21/16 at 01 :00 Nicotine (Nicoderm 14 Mg/ 24hr) 1 patch DAILY TRANSDERM Last administered on 08:24; Admin Dose 1 PATCH; Start 08/21/16 at 12:30 Fish Oil (Fish Oil) 1,000 mg AM PO Last administered on 08/24/16 08:25; Admin Dose 1,000 MG; Start 08/22/16 at 09:00 Guaifenesin/ Dextromethorphan (Robitussin Dm Liquid Cup) 5 ml Q4H PRN PO COUGH Last administered on 08/23/16t 22:32; Admin Dose 5 ML; Start 08/21/16 at 17:00 CYNDI DEAN MD Aug 24, 2016 16:01
[2016-08-24] MEDS: ZOLPIDEM 5 MG TAB PO SCH (21:00)
[2016-08-24] MEDS: ATORVASTATIN 20 MG TAB PO SCH (21:32)
[2016-08-24] MEDS: EZETIMIBE 10 MG TAB PO SCH (21:32)
[2016-08-24] MEDS: GUAIFENESIN/DM 5ML CUP PO PRN (21:49)
[2016-08-25 04:05] VITALS: PULSE 63
[2016-08-25] MEDS: PANTOPRAZOLE (EC) 40 MG TAB PO SCH (05:55)
[2016-08-25] MEDS: HEPARIN 5,000 UNIT/0.5 ML SYG SC SCH ×2 (05:56→13:13)
[2016-08-25 06:26] LABS: POTASSIUM 3.6 mmol/L (3.5-5.1)
[2016-08-25 06:29] LABS: CREATININE 1.64 mg/dl (0.61-1.24)
[2016-08-25 06:30] LABS: CALCIUM 8.7 mg/dl (8.4-10.2)
[2016-08-25] MEDS: INSULIN ASPART [NOVOLOG] 3 ML PEN SC SCH ×2 (08:00→12:00)
[2016-08-25 08:06] VITALS: BP 133/63; RESP 18
[2016-08-25 08:20] VITALS: PULSE 67
[2016-08-25] MEDS: MEMANTINE 10 MG TAB PO SCH (09:00)
[2016-08-25] MEDS: CYCLOSPORINE 0.05% OPH DROPERETTE BOTH EYES SCH (09:00)
[2016-08-25] MEDS: SOLIFENACIN 5 MG TAB PO SCH (09:00)
[2016-08-25] MEDS: GUAIFENESIN/DM 5ML CUP PO PRN (09:55)
[2016-08-25] MEDS: SALMETEROL/FLUTICASONE 250/50 INHA INH SCH (09:56)
[2016-08-25] MEDS: OLOPATADINE 0.1% 5 ML OPH BOTH EYES SCH (09:56)
[2016-08-25] MEDS: CREON (24K-76K-120K) 1 CAP PO SCH ×2 (09:56→12:16)
[2016-08-25] MEDS: MEGESTROL 40 MG TAB PO SCH (09:56)
[2016-08-25] MEDS: RANOLAZINE (SR) 500 MG TAB PO SCH (09:56)
[2016-08-25] MEDS: DUTASTERIDE 0.5 MG CAP PO SCH (09:56)
[2016-08-25] MEDS: GABAPENTIN 300 MG CAP PO SCH (09:56)
[2016-08-25] MEDS: ARIPIPRAZOLE 2 MG TAB PO SCH (09:57)
[2016-08-25] MEDS: FISH OIL 1,000 MG CAP PO SCH (09:57)
[2016-08-25] MEDS: NICOTINE (14 MG/24 HR) PATCH TRANSDERM SCH (09:58)
[2016-08-25 12:09] VITALS: BP 110/61; RESP 19
[2016-08-25 12:21] VITALS: PULSE 67
--- NOTE | 2016-08-25 12:38 | CONS ---
Date/Time of Note Date/Time of Note DATE: 08/25/16 TIME: 12:37 Assessment/Plan Assessment/Plan Additional Assessment/Plan 1. Acute kidney injury versus acute kidney injury on chronic kidney disease stage III secondary to prerenal azotemia along with bilateral nephrolithiasis causing obstruction. 2. Hematuria with trace proteinuria, likely secondary to chronic kidney disease and secondary to kidney stone. 3. History of chronic kidney disease, unknown stage, secondary to diabetic nephropathy with acquired cysts bilaterally on the CT scan. 4. History of coronary artery disease, nonobstructive. 6. History of hypertension. 7. Hyperlipidemia 8. History of diabetes mellitus. PLAN: kayexalate for hyperkalemia - now K normal, d/c IV fluids follow up with dr.kalpesh Ahuja in 1-2 week Consultation Date/Type/Reason Admit Date/Time Aug 22, 2016 at 12:36 Initial Consult Date 08/22/16 Type of Consultation: NEPHROLOGY Reason for Consultation Acute kidney injury, Hyperkalemia, Referring Provider: DAVID MONTES MD 24 HR Interval Summary Free Text/Dictation cr improved to 1.6, BP stable, ok to d/c home today Exam/Review of Systems Vital Signs Vitals Vital Signs Date Time Temp Pulse Resp B/P Pulse Ox O2 Delivery O2 Flow Rate FiO2 08/25/16 12:21 67 08/25/16 12:09 98.0 19 110/61 96 08/24/16 20:49 Room Air 08/22/16 20:00 2.0 Intake and Output 08/24/16 08/24/16 08/25/16 15:00 23:00 07:00 Intake Total 750 ml 1000 ml 300 ml Balance 750 ml 1000 ml 300 ml Results Result Diagram: 08/24/16 0640 08/25/16 0545 Results 24 hrs Laboratory Tests Test 08/24/16 17:20 08/24/16 20:54 08/25/16 05:45 08/25/16 07:41 Bedside Glucose 142 160 129 Anion Gap 18 H Blood Urea Nitrogen 19 Calcium Level 8.7 Carbon Dioxide Level 25 Chloride Level 104 Creatinine 1.64 H Glucose Level 131 Potassium Level 3.6 Sodium Level 143 Test 08/25/16 11:53 Bedside Glucose 182 Medications Medications Current Medications Ondansetron HCl (Zofran Inj) 4 mg Q6H PRN IV NAUSEA AND/OR VOMITING; Start at 00:00 Nitroglycerin (Nitroglycerin (Sl Tab) 0.4 Mg) 1 tab Q5M PRN SL CHEST PAIN; Start 08/21/16 at 00:00 Acetaminophen (Tylenol Liquid) 650 mg Q6H PRN PO PAIN LEVEL 1-3 OR FEVER; Start 08/21/16 at 00:00 Morphine Sulfate (morphine) 2 mg Q4H PRN IV PAIN LEVEL 7-10; Start 08/21/16 at 00:00 Lorazepam (Ativan) 1 mg Q2H PRN IV ANXIETY; Start 08/21/16 at 00:00 Docusate Sodium (Colace) 100 mg Q12H PRN PO CONSTIPATION; Start 08/21/16 at 00: 00 Heparin Sodium (Porcine) (Heparin (5000 Units/0.5 ml)) 5,000 unit Q8 SC Last administered on 08/25/16 05:56; Admin Dose 5,000 UNIT; Start 08/21/16 at 06:00 Aripiprazole (Abilify) 2 mg DAILY PO Last administered on 08/25/16 09:57; Admin Dose 2 MG; Start 08/21/16 at 09:00 Carvedilol (Coreg) 25 mg BID PO Last administered on 08/25/16 09:57; Admin Dose 25 MG; Start 08/21/16 at 09:00 Cyclosporine (Restasis) 1 drop Q12 BOTH EYES Last administered on 08/24/16 08: 27; Admin Dose 1 DROP; Start 08/21/16 at 09:00 Dutasteride (Avodart) 0.5 mg DAILY PO Last administered on 08/25/16 09:56; Admin Dose 0.5 MG; Start 08/21/16 at 09:00 EZETIMIBE (Zetia) 10 mg HS PO Last administered on 08/24/16 21:32; Admin Dose 10 MG; Start 08/21/16 at 21:00 Gabapentin (Neurontin) 300 mg BID PO Last administered on 08/25/16 09:56; Admin Dose 300 MG; Start 08/21/16 at 09:00 Meclizine HCl (Antivert) 25 mg BID PRN PO DIZZINESS Last administered on 08:44; Admin Dose 25 MG; Start 08/21/16 at 00:00 Memantine (Namenda) 10 mg BID PO Last administered on 08/24/16 08:25; Admin Dose 10 MG; Start 08/21/16 at 09:00 Ranolazine (Ranexa) 500 mg Q12 PO Last administered on 08/25/16 09:56; Admin Dose 500 MG; Start 08/21/16 at 09:00 Salmeterol Xinafoate/ Fluticasone (Advair 250/50 Diskus) 1 inh BID INH Last administered on 08/25/16 09:56; Admin Dose 1 INH; Start 08/21/16 at 09:00 Solifenacin (Vesicare) 5 mg DAILY PO Last administered on 08/24/16 08:25; Admin Dose 5 MG; Start 08/21/16 at 09:00 Zolpidem Tartrate (Ambien) 5 mg HS PO Last administered on 08/23/16 21:36; Admin Dose 5 MG; Start 08/21/16 at 21:00 Pantoprazole (Protonix Tab) 40 mg BID@18 PO Last administered on 08/25/16 05:55; Admin Dose 40 MG; Start 08/21/16 at 06:00 Megestrol Acetate (Megace) 20 mg DAILY PO Last administered on 08/25/16 09:56 ; Admin Dose 20 MG; Start 08/21/16 at 09:00 Olopatadine HCl (Patanol 0.1% Oph) 1 drop BID BOTH EYES Last administered on 09:56; Admin Dose 1 DROP; Start 08/21/16 at 14:00 Atorvastatin Calcium (Lipitor) 20 mg DAILY@21 PO Last administered on 21:32; Admin Dose 20 MG; Start 08/21/16 at 21:00 Miscellaneous Information 1 ea NOTE XX ; Start 08/21/16 at 01:00 Glucose (Glutose) 15 gm Q15M PRN PO DECREASED GLUCOSE; Start 08/21/16 at 01:00 Glucose (Glutose) 22.5 gm Q15M PRN PO DECREASED GLUCOSE; Start 08/21/16 at 01: 00 Dextrose (D50w Syringe) 25 ml Q15M PRN IV DECREASED GLUCOSE; Start 08/21/16 at 01:00 Dextrose (D50w Syringe) 50 ml Q15M PRN IV DECREASED GLUCOSE; Start 08/21/16 at 01:00 Glucagon (Glucagen) 1 mg Q15M PRN IM DECREASED GLUCOSE; Start 08/21/16 at 01:00 Glucose (Glutose) 15 gm Q15M PRN BUCCAL DECREASED GLUCOSE; Start 08/21/16 at 01 :00 Nicotine (Nicoderm 14 Mg/ 24hr) 1 patch DAILY TRANSDERM Last administered on 09:58; Admin Dose 1 PATCH; Start 08/21/16 at 12:30 Fish Oil (Fish Oil) 1,000 mg AM PO Last administered on 08/25/16 09:57; Admin Dose 1,000 MG; Start 08/22/16 at 09:00 Guaifenesin/ Dextromethorphan (Robitussin Dm Liquid Cup) 5 ml Q4H PRN PO COUGH Last administered on 08/25/16 09:55; Admin Dose 5 ML; Start 08/21/16 at 17:00 EUGENIA AHUJA MD Aug 25, 2016 12:38
--- NOTE | 2016-08-25 14:11 | PDOCDIS ---
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
[2016-08-25] MEDS ORDERED: NIT4 SL (14:17)
[2016-08-25] MEDS ORDERED: Nicotine (14 Mg/24 Hr) TRANSDERM (14:17)
[2016-08-25] MEDS ORDERED: ASPI-664 PO (14:17)
--- NOTE | 2016-08-25 23:27 | DS ---
DATE OF ADMISSION: 08/22/2016 DATE OF DISCHARGE: 08/25/2016 CONSULTANTS: 1. Dr. Alfa Mace. 2. Dr. Ezequiel Brunner. 3. Dr. Louis Jeong. DIAGNOSES: 1. Atypical chest pain, acute coronary syndrome was ruled. Patient refused stress test. Continue medical management. 2. Acute on chronic renal insufficiency, stable. 3. Anemia of chronic disease. 4. Diabetes mellitus type 2, well controlled. 5. Essential hypertension, well controlled. 6. Dyslipidemia, stable. 7. Coronary artery disease. Continue aspirin, statin, and beta lila. 8. Depression. Continue Abilify. 9. Dementia, continue Namenda. 10. Hyperkalemia, resolved. 11. Gastroesophageal reflux disease. Continue PPI. 12. History of smoking abuse. The patient will be discharged on nicotine patch, smoking cessation was recommended. 13. Malnutrition. The patient has been continued on Megace. 14. Benign prostatic hypertrophy. Continue VESIcare. MEDICATIONS: 1. Aspirin 81 mg. 2. Nitroglycerin. 3. Nicotine patch. 4. Abilify. 5. Coreg. 6. ____. 7. ____. 8. Avodart. 9. Zetia. 10. Gabapentin. 11. Vascepa. 12. Creon. 13. Meclizine. 14. Megestrol. 15. Namenda. 16. Metformin. 17. Pataday. 18. Ranexa. 19. Advair. 20. Simvastatin. 21. Januvia. 22. VESIcare. 23. Ambien. ALLERGIES: NO KNOWN DRUG ALLERGIES. DIET: Cardiac, low carbohydrate. HOSPITAL COURSE: This is an 80-year-old gentleman with past medical history of diabetes mellitus ty pe 2, essential hypertension, BPH, dyslipidemia, smoking abuse, GERD, CAD, depression, vertigo, COPD , who presents to [facility] secondary to having 4 days of chest pain. The patien t had recently gone gambling and had noted that air conditioning was on top of his head and subseque ntly developed cough, chills. He has been having decreased appetite and nausea, chest discomfort 10 /10 which was substernal, radiating to his back, with diaphoresis, pressure-like sensation, constant with mild shortness of breath. The patient had a VQ scan which showed intermittent. A 2D echocard iogram was obtained which showed normal left ventricular systolic function, normal left ventricle ca vity size, normal left ventricular wall thickness, ejection fraction of 55%, normal right ventricle size. Normal right ventricular systolic function. Normal appearance and function of mitral valve w ith trace systolic regurgitation. Patient was set for a stress test which he refused. Abdominal CT showed calculus within the renal pelvis measuring 8.6 mm, small 4 mm calculus dependent portion of the urinary bladder, bilateral renal cortical thinning suggestive of medical renal disease. No evid ence of bowel obstruction. Broncholithiasis is primarily in the lung base. Aortic atherosclerosis was present. Patient was found to have renal insufficiency with a creatinine of 1.68, was started o n gentle IV fluid. Nephrology was consulted. His kidney function has been improving. Believes jordana t this is at his baseline at this time. Regarding his diabetes mellitus, the patient was continued on medical management, insulin sliding scale, low-carbohydrate diet. Regarding his blood pressure, his KARSTEN inhibitor was placed on hold by nephrology secondary to acute renal insufficiency. His bloo d pressure has been well controlled. He has been continued on Coreg. At this time after gentle IV hydration, his renal panel has been improving. He denies any chest pain, shortness of breath or any other discomfort. Instruction has been given to follow up with his primary care physician. CONDITION AT TIME OF DISCHARGE: Stable. FOLLOWUP: Follow up with cardiology as outpatient. Follow up with nephrology as outpatient. Dictated By: DAVID PALMA/SOFIYA Conf#: [id number] DID#: [id number]
--- NOTE | 2016-08-27 17:35 | RADRPT ---
Vent Rate: 75 bpm RR Interval: 0 msec [place] Interval: 162 msec QRS Duration: 126 msec QT Interval: 452 msec QTC Interval: 504 msec P-R-T [place]: 78 - 77 - 71 degrees Sinus rhythm with frequent premature ventricular complexes in a pattern of bigeminy Right bundle branch block Abnormal ECG Electronically Signed By: Rangel Suarez [id number]
== END 2016-08-25 15:53 | disposition home or self-care (01) | DRG 313 ==
LOC: E/R 07:42 → ICU 08-21 00:39 → INTOOBSV 08-21 00:39 → MS4 08-21 19:45 → OBSVTOIN 08-22 12:36
PROVIDERS: ADMIT Student in an Organized Health Care Education/Training Program; ATTEND Student in an Organized Health Care Education/Training Program
DX: R07.9 Chest pain, unspecified (principal); I25.10 Atherosclerotic heart disease of native coronary artery without angina pectoris; N17.9 Acute kidney failure, unspecified; E46 Unspecified protein-calorie malnutrition; E11.22 Type 2 diabetes mellitus with diabetic chronic kidney disease; N39.0 Urinary tract infection, site not specified; N20.2 Calculus of kidney with calculus of ureter; F17.200 Nicotine dependence, unspecified, uncomplicated; N40.0 Benign prostatic hyperplasia without lower urinary tract symptoms; K21.9 Gastro-esophageal reflux disease without esophagitis; D64.9 Anemia, unspecified; J44.9 Chronic obstructive pulmonary disease, unspecified; F32.9 Major depressive disorder, single episode, unspecified; R42 Dizziness and giddiness; I12.9 Hypertensive chronic kidney disease with stage 1 through stage 4 chronic kidney disease, or unspecified chronic kidney disease; N18.3 Chronic kidney disease, stage 3 (moderate); E87.5 Hyperkalemia; Z68.21 Body mass index [BMI] 21.0-21.9, adult
CPT/HCPCS: 36415; 71010; 74176; 76775; 78582; 80048; 80053; 80061; 81001; 81003; 82550; 82553; 82570; 82962; 83036; 83690; 83735; 84100; 84300; 84443; 84484; 84560; 85025; 85378; 85610; 85730; 87081; 89190; 93005; 93306; 96360; 96361; 99217; G0378; A9539; A9540; J1815; J3475; J7030